=== PATIENT | male | born 1970 | race Caucasian/White ===

== ENCOUNTER 2016-07-05 04:02 | Inpatient (IN) ==
[2016-07-05] MEDS ORDERED: NS 1,000 ML IV ONE (04:32)
[2016-07-05] MEDS ORDERED: DILAUDID IM ONE (04:46)
[2016-07-05] MEDS ORDERED: ZOFRAN IV ONE (04:46)
[2016-07-05 04:47] LABS: MANUAL DIFF NEEDED? NO; URINE CULTURE NEEDED? NO; URINE MICRO REVIEW NEEDED? NO; URINE SOURCE CLEAN CATCH
[2016-07-05 04:57] LABS: BILIRUBIN URINE NEGATIVE (NEGATIVE); BLOOD URINE NEGATIVE (NEGATIVE); COLOR YELLOW; GLUCOSE URINE NEGATIVE (NEGATIVE); LEUKOCYTES URINE NEGATIVE (NEGATIVE); NITRITE URINE NEGATIVE (NEGATIVE); PROTEIN URINE NEGATIVE (NEGATIVE); SP GRAVITY URINE 1.015; TURBIDITY URINE CLEAR (CLEAR); UROBILINOGEN URINE NORMAL (NORMAL)
[2016-07-05 04:58] LABS: BASO% 0.6 % (0.0-0.8); EOS# 0.92 X1000 (0.0-0.7); EOS% 10.5 % (0.0-10.0); HEMOGLOBIN 16.5 g/dL (14.0-18.0); IMM GRAN# 0.02 X1000 (0.0-0.04); IMM GRAN% 0.2 % (0.0-0.5); LYMPH# 2.78 X1000 (1.2-3.4); LYMPH% 31.7 % (20.5-51.1); MCHC 35.1 g/dL (33-37); MCV 96.9 FL (81-99); MONO# 0.97 X1000 (0.11-0.59); MPV 10.1 FL (7.4-10.4); PLT 275 X1000 (130-400); RBC 4.85 XMIL (4.7-6.1)
[2016-07-05 05:00] LABS: UR EPITHELIAL CELLS <10 /HPF (<10); URINE BACTERIA NEGATIVE /HPF; URINE RBC <10 /HPF (<10); URINE WBC <10 /HPF (<10)
[2016-07-05 05:12] LABS: AGAP 12; ALBUMIN 3.9 g/dL (3.5-5.0); ALKALINE PHOSPHATASE 64 U/L (32-122); AMYLASE 67 U/L (20-200); BUN 15 mg/dL (8-22); CALCIUM 8.7 mg/dL (8.8-10.2); CHLORIDE 100 mmol/L (98-107); COSMO 278; GOT 28 U/L (10-34); GPT 29 U/L (10-44); LIPASE 42 U/L (13-60); POTASSIUM 3.8 mmol/L (3.5-5.1); SODIUM 139 mmol/L (136-145); TCO2 27 mmol/L (25-35); TOTAL BILIRUBIN 0.45 mg/dL (0.20-1.00)
--- NOTE | 2016-07-05 05:34 | PROVIDER DOCUMENTATION ---
HPI-Abdominal Pain/GI Problem - General Chief Complaint: Abdominal Pain Stated Complaint: MALE Time Seen by Provider: 07/05/16 04:19 Source: patient Allergies/Adverse Reactions: Patient Allergies Allergy/AdvReac Type Severity Reaction Status Date / Time iodine Allergy Severe trouble Verified 07/05/16 04:29 breathing NSAIDS (Non-Steroidal Allergy Unknown bleeding Verified 07/05/16 04:29 Anti-Inflamma Penicillins Allergy Unknown RASH Verified 07/05/16 04:29 Sulfa (Sulfonamide Allergy Unknown RASH Verified 07/05/16 04:29 Antibiotics) Home Medications: Home Medication List Medication Instructions Recorded Confirmed Last Taken Type Psyllium Husk [Medi-Mucil] 0.52 mg PO DAILY 07/05/16 07/05/16 07/04/16 08:00 History Ranitidine HCl [Zantac] 300 mg PO DAILY 07/05/16 07/05/16 07/04/16 08:00 History - History of Present Illness-ABD Nature of Presenting Problems: 45 jony WM with Crohn's dz developed abdominal bloating and distension yesterday morning. He normally has about 20 BM's perday but none the past 24 h. Review of Systems - Adult - REVIEW OF SYSTEMS - ADULT Constitutional: reports: no symptoms reported Eyes: reports: no symptoms reported Ears, Nose, Mouth & Throat: reports: no symptoms reported Cardiovascular: reports: no symptoms reported Respiratory: reports: no symptoms reported Gastrointestinal: reports: see HPI Genitourinary: reports: no symptoms reported Musculoskeletal: reports: no symptoms reported Integumentary: reports: no symptoms reported Neurological: reports: no symptoms reported Psychiatric: reports: no symptoms reported Endocrine: reports: no symptoms reported Hematologic/Lymphatic: reports: no symptoms reported Allergic/Immunologic: reports: no symptoms reported All Other Systems: Reviewed and Negative Past History - Adult - PAST MEDICAL HISTORY-ADULT Review of Records: reports: Old Records Reviewed Major Childhood Illnesses: reports: denies history Cardiovascular: reports: denies history Respiratory: reports: denies history Gastrointestinal: reports: Crohn's Obstetrical/Gynecological: reports: denies history Genitourinary: reports: denies history Musculoskeletal: reports: denies history Neurological: reports: denies history Endocrine/Immune: reports: denies history Other Conditions: reports: denies history - FAMILY HISTORY Family History: reviewed, not pertinent Physical Exam-General - CONSTITUTIONAL General Appearance: appears well - EYES Eyes: PERRL/EOMI, pink conjunctivae - HEAD, EARS, NOSE, MOUTH & THROAT HENMT: normocephalic/atraumatic, moist mucous membranes - NECK Neck: non-tender, full range of motion - RESPIRATORY Respiratory: chest non-tender, lungs clear, normal breath sounds - CARDIOVASCULAR Cardiovascular: normal peripheral pulses, regular rate, rhythm, no edema - GASTROINTESTINAL (ABDOMEN) Abdominal Exam: distended, tenderness. negative: normal bowel sounds - LYMPHATIC Lymphatic: no adenopathy - MUSCULOSKELETAL Extremity: non-tender Peripheral Pulses: radial (R): 3+, radial (L): 3+ - SKIN Integumentary: normal color, normal turgor - NEUROLOGIC Neurologic: grossly normal - PSYCHIATRIC Psych/Mental Status: normal mood/affect Progress - PLAN OF CARE/RESULTS Progress/Plan/Lab Results: Laboratory Tests 07/05/16 07/05/16 07/05/16 04:22 04:22 04:22 WBC 8.78 RBC 4.85 Hgb 16.5 Hct 47.0 MCV 96.9 MCH 34.0 H MCHC 35.1 RDW Std Deviation 13.5 Plt Count 275 MPV 10.1 Immature Gran % (Auto) 0.2 Neut % (Auto) 46.0 Lymph % (Auto) 31.7 Cannon % (Auto) 11.0 H Eos % (Auto) 10.5 H Baso % (Auto) 0.6 Immature Gran # (Auto) 0.02 Neut # (Auto) 4.04 Lymph # (Auto) 2.78 Cannon # (Auto) 0.97 H Eos # (Auto) 0.92 H Baso # (Auto) 0.05 Sodium 139 Potassium 3.8 Chloride 100 Carbon Dioxide 27 Anion Gap 12 BUN 15 Creatinine 1.2 Estimated GFR/1.73 m2 > 60 BUN/Creatinine Ratio 13 Glucose 88 Calculated Osmolality 278 Calcium 8.7 L Total Bilirubin 0.45 AST 28 ALT 29 Alkaline Phosphatase 64 Total Protein 7.0 Albumin 3.9 Globulin 3.1 Albumin/Globulin Ratio 1.3 Amylase 67 Lipase 42 Urine Source CLEAN CATCH Urine Color YELLOW Urine Turbidity CLEAR Urine pH 6.0 Ur Specific Cicero 1.015 Urine Protein NEGATIVE Ur Glucose (Stick) NEGATIVE Ur Ketones (Stick) TRACE A Urine Blood NEGATIVE Urine Nitrite NEGATIVE Urine Bilirubin NEGATIVE Urobilinogen Dipstick NORMAL Urine Leukocytes NEGATIVE Urine WBC (Auto) <10 Urine RBC (Auto) <10 U Epithel Cells (Auto) <10 Urine Bacteria (Auto) NEGATIVE Orders Category Date Time Status Saline Loc DIRECTED Care 07/05/16 04:26 Active NPO Diet 07/05/16 04:[address] ABD/PELVIS W/ IV CONT ONLY [CT] Stat Exams 07/05/16 05:39 Ordered FLAT/UPRIGHT ABD/1 VIEW CHEST [RAD] Stat Exams 07/05/16 04:32 Taken AMYLASE [CHEM] Stat Lab 07/05/16 04:22 Completed CBC WITH ELECTRONIC DIFF [HEME] Stat Lab 07/05/16 04:22 Completed COMPREHENSIVE METABOLIC PANEL [CHEM] Stat Lab 07/05/16 04:22 Completed LIPASE [CHEM] Stat Lab 07/05/16 04:22 Completed PT [PROTIME WITH INR] [COAG] Stat Lab 07/05/16 05:38 Ordered PTT [COAG] Stat Lab 07/05/16 05:38 Ordered URINALYSIS W/POSS RFLX CULT [URINALYSIS] Stat Lab 07/05/16 04:22 Completed 0.9% Sodium Chloride Inj [Ns] 1,000 ml Med 07/05/16 04:32 Discontinued IV 999 mls/hr Hydromorphone [Dilaudid] Med 07/05/16 04:46 Discontinued 1 mg IM NOW ONE Ondansetron [Zofran] Med 07/05/16 04:46 Discontinued 4 mg IV NOW ONE Vital Signs Temp Pulse Resp BP Pulse Ox 07/05/16 04:05 97.6 F 120 H 20 113/87 100 iodine Allergy (Severe, Verified 07/05/16 04:29) trouble breathing NSAIDS (Non-Steroidal Anti-Inflamma Allergy (Unknown, Verified 07/05/16 04:29) bleeding Penicillins Allergy (Unknown, Verified 07/05/16 04:29) RASH Sulfa (Sulfonamide Antibiotics) Allergy (Unknown, Verified 07/05/16 04:29) RASH Psyllium Husk [Medi-Mucil] 0.52 mg PO DAILY 07/05/16 Ranitidine HCl [Zantac] 300 mg PO DAILY 07/05/16 Dietary Diet NPO Start SunJul 05 425 I&O 07/03/16 07/04/16 07/05/16 06:59 06:59 06:59 Output Total 65 Balance -65 Laboratory 07/05/16 07/05/16 07/05/16 04:22 04:22 04:22 WBC 8.78 RBC 4.85 Hgb 16.5 Hct 47.0 MCV 96.9 MCH 34.0 H MCHC 35.1 RDW Std Deviation 13.5 Plt Count 275 MPV 10.1 Immature Gran % (Auto) 0.2 Neut % (Auto) 46.0 Lymph % (Auto) 31.7 Cannon % (Auto) 11.0 H Eos % (Auto) 10.5 H Baso % (Auto) 0.6 Immature Gran # (Auto) 0.02 Neut # (Auto) 4.04 Lymph # (Auto) 2.78 Cannon # (Auto) 0.97 H Eos # (Auto) 0.92 H Baso # (Auto) 0.05 Sodium 139 Potassium 3.8 Chloride 100 Carbon Dioxide 27 Anion Gap 12 BUN 15 Creatinine 1.2 Estimated GFR/1.73 m2 > 60 BUN/Creatinine Ratio 13 Glucose 88 Calculated Osmolality 278 Calcium 8.7 L Total Bilirubin 0.45 AST 28 ALT 29 Alkaline Phosphatase 64 Total Protein 7.0 Albumin 3.9 Globulin 3.1 Albumin/Globulin Ratio 1.3 Amylase 67 Lipase 42 Urine Source CLEAN CATCH Urine Color YELLOW Urine Turbidity CLEAR Urine pH 6.0 Ur Specific [place] 1.015 Urine Protein NEGATIVE Ur Glucose (Stick) NEGATIVE Ur Ketones (Stick) TRACE A Urine Blood NEGATIVE Urine Nitrite NEGATIVE Urine Bilirubin NEGATIVE Urobilinogen Dipstick NORMAL Urine Leukocytes NEGATIVE Urine WBC (Auto) <10 Urine RBC (Auto) <10 U Epithel Cells (Auto) <10 Urine Bacteria (Auto) NEGATIVE - XRAY 1 XRAY: Bilateral (SBO) XRAY Study: Chest, Abdomen, Pelvis - CONSULTS/PCP/HOSPITALIST Notification Time Discussed: 05:20 Reason/Comments: Dr. Jesus agrees with admission Consult Disposition: Admit Departure - Departure Time of Disposition Order: 05:47 DIAGNOSIS: Small bowel obstruction Crohn's disease Qualifiers: Gastrointestinal tract location: large intestine Digestive disease complication type: with intestinal obstruction Qualified Code(s): K50.112 - Crohn's disease of large intestine with intestinal obstruction Disposition: ADMITTED INPATIENT 09 Certified Medical Emergency: Emergent Condition: Fair
[2016-07-05 06:12] LABS: INR 1.04; PTT 27.9 Seconds (22.0-36.0)
[2016-07-05] MEDS: DILAUDID IV PRN ×6 (06:20→21:49)
[2016-07-05] MEDS ORDERED: OFIRMEV 1000 MG/ISOTONIC SOLN 100 ML IV PRN (06:31)
[2016-07-05] MEDS ORDERED: SODIUM CHLORIDE 0.9% INJ SCH (06:31)
[2016-07-05] MEDS ORDERED: ZOFRAN IV PRN (06:31)
[2016-07-05] MEDS: NS 1,000 ML IV SCH ×2 (06:44→16:43)
--- NOTE | 2016-07-05 08:11 | Diag Imaging Result Document ---
PROCEDURE NAME: ABDOMEN/PELVIS W/O CONTRAST - 07/05/2016 CT ABDOMEN PELVIS, 07/05/2016: COMPARISON: 11/03/2014 FINDINGS: There are some moderately fluid and gas-distended loops of small bowel similar to prior. There is no focal transition point. No significant bowel inflammatory changes. Stable prior colectomy changes. Urinary bladder, prostate, and rectum are normal. No free air or free fluid. The lung bases are clear and the heart size is normal. Bony structures are intact. No radiodense renal stones or hydronephrosis. There is some stable retroperitoneal stranding compatible with mild retroperitoneal fibrosis. IMPRESSION: Stable mildly gas and fluid-dilated small-bowel loops. This may be a chronic finding or suggest ileus. No definite obstruction. Otherwise, no complication or change from prior.
--- NOTE | 2016-07-05 08:14 | Diag Imaging Result Document ---
PROCEDURE NAME: FLAT/UPRIGHT ABD/1 VIEW CHEST - 07/05/2016 FRONTAL CHEST X-RAY AND 2 VIEWS OF THE ABDOMEN, 07/05/2016: COMPARISON: 11/03/2014. FINDINGS: The chest is clear. There are several scattered mildly gas and fluid-distended loops of small bowel throughout the abdomen. The patient has had a subtotal colectomy. No free air demonstrated. There are cholecystectomy clips. IMPRESSION: There are some mildly gas and fluid-dilated loops of small bowel, which are nonspecific and may represent ileus, better evaluated on the subsequent CT.
--- NOTE | 2016-07-05 08:33 | HISTORY AND PHYSICAL ---
PRIMARY CARE PROVIDER: Dr. Crow Joseph. CHIEF COMPLAINT: Abdominal pain and abdominal distension. HISTORY OF PRESENT ILLNESS: Mr. Bella is a 45-year-old male with a past medical history of Crohn disease with a total colectomy in 1990. The patient presented to the ER today complaining of abdominal pain with no bowel movement since yesterday. The patient states that secondary to his total colectomy that he usually has approximately 20 bowel movements a day that are normally loose, and that not having a bowel movement for a day or more is very unusual for him. He reports that he sees Dr. Joseph as his primary care physician and he manages his Crohn disease. The patient also complains of some abdominal distension though he denies any nausea or vomiting. He denies any fever or chills. The patient does report some body aches, but states that this is not of new onset and that he regularly has body aches secondary to his Humira medicine. He denies any dizziness, headaches, chest pain, shortness of breath, dysuria, urinary frequency, or pain, numbness, or tingling in extremities. Upon evaluation in the ER, the patient was found to have abdominal distension. A flat and upright was performed which did show suspicion for a small bowel obstruction. A CT abdomen and pelvis without intravenous contrast was performed, which showed that the patient had air throughout multiple mildly dilated loops of small bowel with interposed loops of nondistended small bowel. No focal transition point is identified. Findings most suggestive of a mild ileus, although earlier partial small bowel obstruction is not excluded. At this time. we will admit the patient for further treatment and evaluation of his small bowel obstruction. REVIEW OF SYSTEMS: A 14-point review of systems was conducted with the patient and all were negative except for pertinent positives mentioned in the above HPI. PAST MEDICAL HISTORY: 1. Crohn disease. 2. DVT, lower extremity, approximately 5 years ago. 3. Previous small bowel obstruction. PAST SURGICAL HISTORY: 1. Cholecystectomy. 2. Colectomy. ALLERGIES: The patient reports allergies to sulfa, penicillin, iodine, NSAID, and IV contrast dye. SOCIAL HISTORY: The patient denies any previous history of tobacco, alcohol, or illicit drug use. FAMILY HISTORY: He reports that his mother and father are both healthy with no known medical problems. There is a history of cervical cancer in his grandmother. HOME MEDICATIONS: 1. Zantac 300 mg p.o. daily. 2. Metamucil 0.52 mg p.o.daily. 3. Leona 5 one p.o. daily p.r.n. as needed for pain. 4. Humira one injection subcutaneous every 2 weeks. He reports that his last injection was on June 29. DIAGNOSTIC DATA/LABORATORY RESULTS: White blood cell count 8.7, hemoglobin 16.5, hematocrit 47, platelet count 275. PT 11, INR 1.04, PTT 27.9. Sodium 139, potassium 3.8, chloride 100, bicarb 27, BUN 15, creatinine 1.2, glucose 88, calcium 8.7. Liver function tests were within normal limits. Amylase 67, lipase 42. Urinalysis was obtunded via clean catch, was positive for trace ketones but was otherwise within normal limits. CT of the abdomen and pelvis without intravenous contrast showed air throughout mildly dilated loops of small bowel with interposed loops of nondistended small bowel, no focal transition point identified. Findings most suggestive of mild ileus, although an earlier partial small bowel obstruction is not excluded. Possible mild duodenitis. Partial colectomy and cholecystectomy. PHYSICAL EXAMINATION: VITAL SIGNS: Temperature 97.6, heart rate 120, respirations 20, blood pressure 113/87, oxygen saturation is 100% on room air. GENERAL: Mr. Bella is a well-nourished, well-developed, pleasant 45-year-old male who is resting in the ER stretcher who is in no acute distress. He was awake, alert, and able to answer all questions appropriately. HEENT: Head is atraumatic, normocephalic. Pupils are equal, round and reactive to light, were 3 mm bilaterally and brisk. Subconjunctivae are pink. Oral mucosa is moist. Oropharynx is clear. NECK: Supple, trachea midline. CARDIOVASCULAR: The patient has normal S1, S2, no murmurs, gallops, or rubs appreciated with a slightly tachycardic rate and a regular rhythm. PULMONARY: The patient has symmetrical chest expansion bilaterally. Lung sounds are clear to auscultation in bilateral full khanna. ABDOMEN: The patient's abdomen is slightly firm, slightly distended, was tender upon palpation. He reports a generalized soreness though did report the worst pain with palpation in his epigastric area to right upper quadrant. No rebound tenderness noted. Bowel sounds were present in all 4 quadrants, were slightly hyperactive. EXTREMITIES: No cyanosis, clubbing, or edema noted. Pulse, motor, and sensory was intact in all extremities, as well. Pedal pulses as well as radial pulses were 3+ bilaterally. Capillary refill was less than 3. INTEGUMENTARY: The patient's skin is pink, warm, dry, and intact. No lesions or sores noted. NEUROLOGICAL: The patient is alert and oriented x4. Cranial nerves 2-12 are grossly intact. ASSESSMENT AND PLAN: 1. Small bowel obstruction. For management of this, we will admit the patient to the medical floor. We will keep him n.p.o. to allow for bowel rest. We will provide him with gentle fluid infusion of 100 mg normal saline for hydration. We will give him pain medication and nausea medication as needed. We have placed a consult with Dr. Frye with Surgery and will await his evaluation and further recommendations for management of this, as well. 2. Crohn disease. The patient regularly sees Dr. Joseph for this. We will place a consult for his evaluation and further management of this, as well. 3. DVT prophylaxis. We will provide with SCDs. 4. GI prophylaxis. Place the patient on Protonix 40 mg IV q.24 h. We will do vital signs q.6 h., do strict intake and output. We have placed an order for an EKG and that is pending at this time. Further orders and recommendations pending hospital course, diagnostic studies, and physician evaluation. Dictated by SUNI Jasso for Armen Jesus MD
[2016-07-05] MEDS: PROTONIX IV SCH (09:20)
--- NOTE | 2016-07-05 09:45 | CONSULTATION ---
DATE OF CONSULTATION: 07/05/2016 REQUESTING PHYSICIAN: Emergency Department. REASON FOR CONSULTATION: Concerning potential partial small-bowel obstruction in a patient with Crohn. HISTORY OF PRESENT ILLNESS: A 45-year-old male with history of Crohn, who stated he developed abdominal bloating and distention starting yesterday morning. He states that he normally has 20 bowel movements per day, but has had none in the last 24 hours. He is followed by Dr. Joseph for his Crohn, had altered some of his medications, and he thinks taking more Metamucil might have thickened his bowel movements up. He is taking Humira and Remicade for his Crohn, and receives those on a regular basis. He reported some cramping abdominal pain, was seen in emergency department, and had a CT scan that has been read by the radiologist. He was noted to have stable mild gas, dilated small-bowel that could be a chronic finding. No significant change from previous CT scans. Given this, I was asked to evaluate the patient. PAST MEDICAL HISTORY: 1. Crohn. 2. History of DVTs. PAST SURGICAL HISTORY: 1. Total abdominal colectomy with J-pouch reconstruction previous ileostomy with reversal. 2. Cholecystectomy. ALLERGIES: NSAIDs, iodine, penicillin and sulfa. HOME MEDICATIONS: As noted above. He takes Humira and Remicade, Zantac and Metamucil. FAMILY HISTORY: Reviewed with patient. No history of coronary artery disease. SOCIAL HISTORY: Denies smoking, alcohol, or illicit drugs. REVIEW OF SYSTEMS: A full 10 point review of systems obtained, negative other than as specified in HPI. PHYSICAL EXAMINATION: Vital Signs: Patient is afebrile. Upon presentation his heart rate is in the 120s, but now is in the 60s. Respiratory rate nonlabored in the 20's. Blood pressure 113/87, O2 saturation 100% on room air. General: No acute distress. Resting comfortably in bed. male, looks stated age. HEENT: Normocephalic, atraumatic. Pupils equal, round, reactive to light. Mucous membranes moist. Oropharynx benign. Neck: Supple. Trachea midline. Cardiovascular: Regular rate and rhythm. Lungs: Grossly clear. Abdomen: Soft, nondistended and, at this time, no real significant tenderness to palpation on examination. Previous surgical scars noted. Well healed. Extremities: Moves all extremities well. Neurologic: Grossly intact. Skin: No signs of jaundice. Vascular: All extremities perfused. LABORATORY: CBC reviewed, essentially within normal limits. BMP reviewed, essentially within normal limits. X-RAYS: CT scan reviewed and noted above. ASSESSMENT/PLAN: A 45-year-old, male with partial small-bowel obstruction versus chronic obstruction with a history of Crohn. 1. Crohn: At this time, Dr. Joseph, his main social science research assistant, has been consulted. The patient may require steroids for an acute flare up. He does not appear toxic at this time, although his heart rate was initially elevated in the emergency room, but it is now in the 60s. Will recommend bowel rest. Surgical intervention would be difficult given his past surgical history and his J-pouch. I would like to hold off at this time if clinical picture continues to improve. We will continue to follow with you. I appreciate the consult.
--- NOTE | 2016-07-05 13:16 | CONSULTATION ---
DATE OF CONSULTATION: 07/05/2016 HISTORY OF PRESENT ILLNESS: This is a 45-year-old, white male, known to our practice with a history of Crohn's status post total colectomy with J-pouch in the . He has followed in our office for management of his Crohn's. He currently takes Humira 40 mg subcu injections every 2 weeks. He has been prescribed Canasa in the past but insurance had stopped covering it. He was using Canasa when available by samples from our office. He had continued to report loose stools which is chronic for him. He was last seen in our office on June 22. At that time he was given Zantac 150 mg twice daily for its antisecretory effects to see if that helped with diarrhea. He was also advised to start Metamucil 2 tablespoons daily with Activia yogurt. He had been doing that. He states he felt like he got a stomach virus about 2 days ago. Thought it might have been something he had eaten and he continued to have abdominal cramping and then over the last 12-14 hours his bowel movements subsided and so he presented to the emergency room. He denied vomiting. Had some episodes of nausea, reported belching, reported abdominal pain and cramping. He did take some hyoscyamine at home to help with cramping. He denied fever. States his abdomen has been distended and sore over the last several days. He denied dysuria and denied rectal bleeding. Denies blood in the urine. He had an abdominal CT scan that showed stable mildly gas and fluid dilated small bowel loops. He had an abdominal x-ray prior to the CT scan that showed gas and fluid dilated loops of small bowel nonspecific and possibly representing an ileus. On the CT scan comparable to October of 2014, the gas and fluids dilated loops of small bowel were stable. PAST MEDICAL HISTORY: For Crohn's, history of peptic ulcer disease. PAST SURGICAL HISTORY: Colectomy in the . Last flexible sigmoidoscopy was in 2016. He has had a cholecystectomy. SOCIAL HISTORY: Denies tobacco or alcohol use. He is . He has 2 children. ALLERGIES: To iodine causing trouble breathing, NSAIDs causing bleeding, penicillins cause rash, sulfa medications cause a rash. HOME MEDICATIONS: Humira 40 mg subcu every 14 days. Cowdrey 5, 1 daily as needed. Zantac 150 mg twice daily and Metamucil daily.Vital Signs: Temperature 97.6 degrees, pulse 58, respirations 17, blood pressure 104/72. General: Patient is awake, alert, no acute distress. HEENT: Normocephalic, atraumatic. Pupils equal, round, reactive to light. Sclerae nonicteric. Cardiovascular: Regular rate and rhythm. He has had some tachycardia noted. Pulmonary: Lung sounds clear bilaterally. Abdomen: Somewhat distended. I do hear some positive bowel sounds. He reports tenderness with palpation. Extremities: No lower extremity edema noted. Pedal pulses present bilaterally. Neurological: Cranial nerves 2-12 grossly intact. Patient is awake, alert, oriented to person, place, and time. LABORATORY: Hematology: White count 8.78, hemoglobin 16.5, hematocrit 47.0, MCV 96.9, platelets 275,000. Coagulation: Pro time 11.0 and INR 1.04, PTT 27.9. Chemistry: Sodium 139, potassium 3.8, chloride 100, CO2 27, BUN 15, creatinine 1.2, glucose 88, calcium 8.7, total bilirubin 0.45, AST 28, ALT 29, alkaline phosphatase 64, amylase 67, lipase 42. Urinalysis showed trace amount of ketones otherwise normal urinalysis. PLAN: Continue supportive care. Continue IV fluids. Bowel rest. I have discussed this case with Dr. Hoyos. Further plans will be made as needed. Do not recommend surgical intervention at present. Will continue bowel rest, IV fluids and see if his symptoms improve. Further plans will be made as needed. Patient was understanding of this plan. Thank you for this consultation. Dictated by SUNI Singh for Crow Joseph MD
[2016-07-05] MEDS: SOLU-MEDROL IV SCH ×2 (15:18→21:48)
[2016-07-06] MEDS: SOLU-MEDROL IV SCH ×2 (00:08→06:18)
[2016-07-06] MEDS: DILAUDID IV PRN ×2 (01:18→05:09)
[2016-07-06 06:23] LABS: BASO% 0.1 % (0.0-0.8); EOS# 0.01 X1000 (0.0-0.7); EOS% 0.1 % (0.0-10.0); HEMATOCRIT 46.5 % (42.0-52.0); HEMOGLOBIN 16.1 g/dL (14.0-18.0); IMM GRAN# 0.03 X1000 (0.0-0.04); IMM GRAN% 0.3 % (0.0-0.5); LYMPH# 0.85 X1000 (1.2-3.4); LYMPH% 8.9 % (20.5-51.1); MANUAL DIFF NEEDED? YES; MCH 33.8 PG (27-31); MCHC 34.6 g/dL (33-37); MCV 97.7 FL (81-99); MONO# 0.17 X1000 (0.11-0.59); MONO% 1.8 % (1.7-9.3); MPV 9.8 FL (7.4-10.4); NEUT% 88.8 % (42.2-75.2); PLT 266 X1000 (130-400); RBC 4.76 XMIL (4.7-6.1)
--- NOTE | 2016-07-06 06:24 | PROGRESS NOTE ---
DATE: 07/06/2016 SUBJECTIVE: Patient doing well. Having multiple bowel movements. Pain is much improved. OBJECTIVE: Vital Signs: Patient is currently afebrile. His vital signs have been stable. General: No acute distress. Alert, interactive, male looks stated age. HEENT: Normocephalic, atraumatic. Pupils are equal, round, react to light. Mucous membranes moist. Oropharynx benign. Neck: Supple. Trachea midline. Cardiovascular: Regular rate and rhythm. Lungs: Grossly clear. Abdomen: Soft, nondistended, nontender at this time. Extremities: Moves all extremities well. Neurologic: Grossly intact. Skin: No signs of jaundice. Vascular: All extremities perfused. LABORATORY: None this morning yet. ASSESSMENT/PLAN: A 45-year-old, male with partial small-bowel obstruction likely secondary to Crohn's Crohn's. At this time, patient is clinically doing well. Can likely start him on a diet. He is being seen and evaluated by his supervisor metal hanging, Dr. Joseph. I will defer most of the management to him. I will be available if needed.
[2016-07-06 06:39] LABS: AGAP 13; BUN 15 mg/dL (8-22); CALCIUM 8.5 mg/dL (8.8-10.2); CHLORIDE 102 mmol/L (98-107); COSMO 277; POTASSIUM 4.2 mmol/L (3.5-5.1); SODIUM 138 mmol/L (136-145); TCO2 23 mmol/L (25-35)
[2016-07-06 07:15] LABS: BANDS 6 % (0-1); LYMPHS 10 % (21-51); MONO 2 % (1-9)
[2016-07-06] MEDS: PROTONIX IV SCH (09:35)
[2016-07-06 15:25] VITALS: BP 130/71
--- NOTE | 2016-07-07 18:34 | DISCHARGE SUMMARY ---
ADMISSION DATE: 07/05/2016 DISCHARGE DATE: 07/06/2016 CONSULTATIONS: 1. Crow Joseph M.D., Gastroenterology. 2. Donnie Frye M.D., General Surgery. PERTINENT PROCEDURES: Abdominopelvic CT shows stable mild gas and fluid, dilated small bowel loops. This may be a chronic finding or suggest ileus. No definite obstruction. Otherwise no complication or change from prior. DISCHARGE DIAGNOSES: 1. Small bowel obstruction likely secondary to Crohn's. Stable. We will follow up with Gastroenterology. 2. Crohn's disease. The patient will follow up with Gastroenterology. 3. Lower extremity deep vein thrombosis history 5 years ago. 4. Previous small-bowel obstruction history. HOSPITAL COURSE: Mr. Bella is a 45-year-old, male with a past medical history of Crohn's disease with a total colectomy in 1990. Patient presented to the ED complaining of abdominal pain with no bowel movement since the day before admission. The patient states that secondary to his total colectomy he usually has approximately 20 bowel movements a day that are normally loose and that not having a bowel movement for a day is very unusual for him. He reported that he sees Dr. Joseph, his primary care physician, and he manages his Crohn's disease. Patient also complained of some abdominal distention though he denied any nausea, vomiting, fever or chills. He did report some body aches but stated that was a common occurrence for him secondary to his Humira. Flat and upright performed in the ED showed a small bowel obstruction. A CT of the abdomen and pelvis without contrast was performed which showed the patient had air throughout multiple mildly dilated loops of small bowel with interposed loops of nondistended small bowel. No focal transition point was identified. It was suggestive of mild ileus or partial small bowel obstruction could not be excluded. The patient was admitted, made NPO, started IV fluids as well as pain medications with a GI consultation and surgical consultation. Surgery recommended bowel rest to see if he clinically improved. The patient did clinically improve. He was started on a diet and he tolerated that well. He was having multiple bowel movements. His pain was much improved. The patient was discharged on 07/06/[address] Blanchard. VITAL SIGNS AT TIME OF DISCHARGE: Temperature 98 degrees, heart rate 83, respirations 20, blood pressure is 130/71, O2 is 99% on room air. DISCHARGE MEDICATIONS: 1. Leola 5, 1 each p.o. daily p.r.n. 2. Humira 20 mg subcutaneously as directed. 3. Metamucil 0.5 mg p.o. daily. 4. Zantac 300 mg p.o. daily. 5. Medrol Dosepak 4 mg as directed. FOLLOWUP: 1. The patient is discharged back home. 2. He will follow up with his GI specialist, Dr. Joseph. 3. The patient can return to the ED for any worsening of symptoms. DISCHARGE TIME: 30 minutes. Dictated by SUNI Brasher for Guero Holden MD
== END 2016-07-06 15:47 | disposition home or self-care (01) | DRG 386 ==
LOC: ED 04:02 → EDIPHOLD 08:13 → 4N 13:40
PROVIDERS: ATTEND Internal Medicine
DX: K50.112 Crohn's disease of large intestine with intestinal obstruction (principal); Z86.718 Personal history of other venous thrombosis and embolism; Z90.49 Acquired absence of other specified parts of digestive tract; Z80.49 Family history of malignant neoplasm of other genital organs; Z79.899 Other long term (current) drug therapy; Z87.11 Personal history of peptic ulcer disease
CPT/HCPCS: 74022; 74176; 80048; 80053; 81001; 82150; 82306; 82607; 82746; 82948; 83690; 85025; 85610; 85730; 93005; 94762; 96372; 96374; 96375; 96376; C9113; J1170; J2405; J2930; J7030; S0164

== ENCOUNTER 2016-09-28 11:53 | Inpatient (IN) ==
[2016-09-28] MEDS ORDERED: MORPHINE IV ONE (12:12)
[2016-09-28] MEDS ORDERED: ZOFRAN ODT PO ONE (12:12)
[2016-09-28] MEDS ORDERED: NS 1,000 ML IV ONE (12:12)
--- NOTE | 2016-09-28 12:26 | PROVIDER DOCUMENTATION ---
HPI-Abdominal Pain/GI Problem - General Chief Complaint: Abdominal Pain Stated Complaint: POSS BLOCKAGE Time Seen by Provider: 09/28/16 12:03 Source: patient, family Allergies/Adverse Reactions: Patient Allergies Allergy/AdvReac Type Severity Reaction Status Date / Time iodine Allergy Severe trouble Verified 09/28/16 12:30 breathing NSAIDS (Non-Steroidal Allergy Unknown bleeding Verified 09/28/16 12:30 Anti-Inflamma Penicillins Allergy Unknown RASH Verified 09/28/16 12:30 Sulfa (Sulfonamide Allergy Unknown RASH Verified 09/28/16 12:30 Antibiotics) Home Medications: Home Medication List Medication Instructions Recorded Confirmed Last Taken Type Adalimumab [Humira] 20 mg SQ DIRECTED 07/05/16 09/28/16 09/28/16 History - History of Present Illness-ABD Nature of Presenting Problems: Diffused abd pain this this morning with N/V. Long history of Crohn's disease and had surgeries in the past. H/o SBO recurrently. Pt is allergic to IV contrast with severe reaction. Denies F/C/dysuria Abdominal Pain Onset Location: reports: generalized abdomen Pain Radiation: reports: no radiation Quality of Pain: reports: aching Severity in ED: reports: moderate, severe Onset/Duration: reports: this morning Timing: reports: still present Activities at Onset: reports: none Exposure to sick contacts?: No Associated Symptoms: reports: denies symptoms, loss of appetite, nausea, vomiting. denies: constipation, cough Last BM: unsure Dark Stools Present?: reports: none noticed Rectal Bleeding: reports: none Rectal Pain: reports: none Emesis Description: reports: none Bruising or Bleeding Gums?: No Similar Symptoms Previously?: Yes Recently seen or treated by another doctor?: Yes Review of Systems - Adult - REVIEW OF SYSTEMS - ADULT Constitutional: reports: no symptoms reported Eyes: reports: no symptoms reported Ears, Nose, Mouth & Throat: reports: no symptoms reported Cardiovascular: reports: no symptoms reported Respiratory: reports: no symptoms reported Gastrointestinal: reports: see HPI, abdominal pain, nausea, vomiting Genitourinary: reports: see HPI, dysuria Musculoskeletal: reports: no symptoms reported Integumentary: reports: no symptoms reported Neurological: reports: no symptoms reported Psychiatric: reports: no symptoms reported Endocrine: reports: no symptoms reported Hematologic/Lymphatic: reports: no symptoms reported Allergic/Immunologic: reports: no symptoms reported All Other Systems: Reviewed and Negative Past History - Adult - PAST MEDICAL HISTORY-ADULT Review of Records: reports: Old Records Reviewed, Nursing Assessment Review Major Childhood Illnesses: reports: denies history Cardiovascular: reports: denies history Respiratory: reports: denies history Gastrointestinal: reports: Crohn's Obstetrical/Gynecological: reports: denies history Genitourinary: reports: denies history Musculoskeletal: reports: denies history Neurological: reports: denies history Endocrine/Immune: reports: denies history Other Conditions: reports: denies history - FAMILY HISTORY Family History: reviewed, not pertinent Physical Exam-General - PHYSICAL EXAM-ADULT Initial Vital Signs Reviewed: Yes - CONSTITUTIONAL General Appearance: alert, no apparent distress - EYES Eyes: PERRL/EOMI, pink conjunctivae - HEAD, EARS, NOSE, MOUTH & THROAT HENMT: normocephalic/atraumatic, moist mucous membranes, normal ENT inspection - NECK Neck: non-tender, full range of motion, supple - RESPIRATORY Respiratory: chest non-tender, lungs clear, no respiratory distress, no accessory muscle use - CARDIOVASCULAR Cardiovascular: normal peripheral pulses, regular rate, rhythm - GASTROINTESTINAL (ABDOMEN) Abdominal Exam: normal bowel sounds, non tender, soft, no organomegaly, no pulsatile mass, tenderness (Diffused abd tenderness with guarding and mild rebound.). negative: guarding, rigid, rebound - MUSCULOSKELETAL Back Exam: normal inspection, no CVA tenderness, no vertebral tenderness Extremity: normal range of motion, non-tender, normal gait, normal inspection - SKIN Integumentary: normal color, normal turgor, warm/dry - NEUROLOGIC Neurologic: no motor/sensory deficits - PSYCHIATRIC Psych/Mental Status: normal mood/affect, normal thought content, normal thought process, oriented x 3 Progress - PLAN OF CARE/RESULTS Progress/Plan/Lab Results: Vital Signs - 8 hr 09/28/16 12:00 Temperature 97.7 F Pulse Rate 47 L Respiratory Rate 18 Blood Pressure 121/79 O2 Sat by Pulse Oximetry 100 Orders Category Date Time Status Saline Loc DIRECTED Care 09/28/16 12:12 Active NPO Diet 09/28/16 12:12 Active KUB ABDOMEN [RAD] Stat Exams 09/28/16 12:12 Ordered AMYLASE [CHEM] Stat Lab 09/28/16 12:12 Uncollected CBC WITH ELECTRONIC DIFF [HEME] Stat Lab 09/28/16 12:12 Uncollected COMPREHENSIVE METABOLIC PANEL [CHEM] Stat Lab 09/28/16 12:12 Uncollected LIPASE [CHEM] Stat Lab 09/28/16 12:12 Uncollected URINALYSIS W/POSS RFLX CULT-1 [URINALYSIS] Stat Lab 09/28/16 12:12 Uncollected 0.9% Sodium Chloride Inj [Ns] 1,000 ml Med 09/28/16 12:12 Active IV 999 mls/hr Morphine Med 09/28/16 12:12 Discontinued 4 mg IV NOW ONE Ondansetron Odt [Zofran Odt] Med 09/28/16 12:12 Discontinued 4 mg PO NOW ONE Result Diagrams: 09/28/16 12:28 09/28/16 12:28 - CT/MRI 1 Impression: Abnormal (CT A+P - partial SBO) - CONSULTS/PCP/HOSPITALIST Notification Time Discussed: 15:16 Reason/Comments: Admit to Dr. Blandon Consult Disposition: Will see in ED, Admit Departure - Departure Time of Disposition Decision: 15:17 DIAGNOSIS: SBO (small bowel obstruction), Crohn's disease Disposition: ADMITTED INPATIENT 09 Certified Medical Emergency: Emergent Condition: Stable - Critical Care Note This patient required my direct & personal management of CC.: No
[2016-09-28 12:44] LABS: MANUAL DIFF NEEDED? NO
[2016-09-28 12:47] LABS: EOS# 0.93 X1000 (0.0-0.7); EOS% 12.6 % (0.0-10.0); HEMATOCRIT 44.9 % (42.0-52.0); HEMOGLOBIN 15.8 g/dL (14.0-18.0); IMM GRAN# 0.02 X1000 (0.0-0.04); IMM GRAN% 0.3 % (0.0-0.5); LYMPH# 2.23 X1000 (1.2-3.4); LYMPH% 30.3 % (20.5-51.1); MCH 33.8 PG (27-31); MCHC 35.2 g/dL (33-37); MCV 96.1 FL (81-99); MONO# 0.47 X1000 (0.11-0.59); MONO% 6.4 % (1.7-9.3); MPV 10.1 FL (7.4-10.4); NEUT% 49.4 % (42.2-75.2); PLT 212 X1000 (130-400); RBC 4.67 XMIL (4.7-6.1)
--- NOTE | 2016-09-28 12:55 | Diag Imaging Result Doc PS360 ---
EXAM: KUB ABDOMEN HISTORY: Abd pain TECHNIQUE: One view COMMENT: There are multiple distended gas-filled small bowel loops over the upper abdomen. There is a possibility of colonic gas. The stomach is not distended. There is no evidence organomegaly or mass. There are staple lines over the right lower quadrant. IMPRESSION: Postsurgical changes. The possibility of small bowel obstruction cannot be excluded. This was also present on 07/05/2016. Electronically signed by Michael Elizabeth 09/28/2016 12:53 PM
[2016-09-28] MEDS ORDERED: DILAUDID IV ONE ×2 (13:05→15:09)
[2016-09-28 13:13] LABS: AGAP 10; ALBUMIN 4.3 g/dL (3.5-5.0); ALKALINE PHOSPHATASE 70 U/L (32-122); AMYLASE 72 U/L (20-200); BUN 18 mg/dL (8-22); CALCIUM 9.2 mg/dL (8.8-10.2); CHLORIDE 102 mmol/L (98-107); COSMO 277; GOT 26 U/L (10-34); GPT 31 U/L (10-44); LIPASE 48 U/L (13-60); POTASSIUM 4.4 mmol/L (3.5-5.1); SODIUM 138 mmol/L (136-145); TCO2 26 mmol/L (25-35); TOTAL BILIRUBIN 0.51 mg/dL (0.20-1.00); TOTAL PROTEIN 7.7 g/dL (6.3-8.3)
[2016-09-28 13:43] LABS: URINE CULTURE NEEDED? NO; URINE MICRO REVIEW NEEDED? NO; URINE SOURCE CLEAN CATCH
[2016-09-28 13:52] LABS: BILIRUBIN URINE NEGATIVE (NEGATIVE); BLOOD URINE NEGATIVE (NEGATIVE); COLOR YELLOW; GLUCOSE URINE NEGATIVE (NEGATIVE); LEUKOCYTES URINE NEGATIVE (NEGATIVE); NITRITE URINE NEGATIVE (NEGATIVE); PH URINE 6.5; PROTEIN URINE TRACE mg/dL (NEGATIVE); SP GRAVITY URINE 1.022; TURBIDITY URINE CLEAR (CLEAR); UROBILINOGEN URINE NORMAL (NORMAL)
[2016-09-28 13:53] LABS: UR EPITHELIAL CELLS <10 /HPF (<10); URINE BACTERIA NEGATIVE /HPF; URINE RBC <10 /HPF (<10); URINE WBC <10 /HPF (<10)
--- NOTE | 2016-09-28 15:05 | Diag Imaging Result Doc PS360 ---
EXAM: ABDOMEN/PELVIS W/O CONTRAST HISTORY: Abd pain with Crohn's and h/o SBO TECHNIQUE: CT urogram without contrast COMMENT: The current study is compared with that of 07/05/2016. There is retained fluid contents in the stomach. There is been cholecystectomy. There is no evidence of nephrolithiasis. The proximal small bowel is not distended. There is dilatation of the mid small bowel with fecal lies contents. There appears to be a transitional point in the right lower quadrant around image 104. This is worse than on 07/05/2016. There has apparently been partial resection of the colon which was also the case previously with anastomosis of the small bowel with the distal colon. No evidence of free fluid or abscess is present. The regional skeleton is intact. IMPRESSION: Partial small bowel obstruction probably due to adhesions. No evidence of focal inflammation or abscess. No evidence of obstructive uropathy. Electronically signed by Michael Elizabeth 09/28/2016 3:03 PM
[2016-09-28] MEDS ORDERED: PROTONIX IV SCH (16:03)
[2016-09-28] MEDS ORDERED: PATIENT'S OWN MED SUBQ SCH (16:03)
[2016-09-28] MEDS ORDERED: MORPHINE IV PRN (16:03)
[2016-09-28] MEDS ORDERED: NS 1,000 ML IV SCH (16:03)
[2016-09-28] MEDS ORDERED: ZOFRAN IV PRN (16:03)
[2016-09-28] MEDS ORDERED: LOVENOX SUBQ SCH (16:03)
[2016-09-28] MEDS ORDERED: SODIUM CHLORIDE 0.9% INJ SCH (16:03)
--- NOTE | 2016-09-28 16:15 | HISTORY AND PHYSICAL ---
PRIMARY GI DOCTOR: Dr. Joseph. HISTORY OF PRESENT ILLNESS: This is a 45-year-old male with past medical history of Crohn's disease with total colectomy in 1990 and also he was recently admitted to the hospital, the last time here on July of this year for a small bowel obstruction. The patient reports that today in the morning he started noticing moderate to severe abdominal pain that was getting worse. He was supposed to see Dr. Joseph in the office because he had an appointment but because of this increasing worsening pain he decided to go to the ER and the CT of the abdomen confirmed small bowel obstruction. He denies any fever, chills. He denies any nausea or vomiting. He reports that he has not had any change in bowel movement but he usually has loose stools because of his colectomy. Patient is going to be admitted for further evaluation and treatment. PAST MEDICAL HISTORY: 1. Crohn's disease. 2. DVT in the lower extremity 5 years ago. 3. History of recurrent small bowel obstruction. PAST SURGICAL HISTORY: 1. Total colectomy in 1990. 2. Cholecystectomy. ALLERGIES: Patient is allergic to sulfa, iodine, penicillin, Ancef and IV contrast. SOCIAL HISTORY: Patient denies drinking alcohol, smoking tobacco, or using illicit drugs. Patient lives with . FAMILY HISTORY: Noncontributory. REVIEW OF SYSTEMS: Eleven systems were reviewed and all symptoms are related to H and P. PHYSICAL EXAMINATION: VITALS: Temperature 97.9 degrees, heart rate 47, respiratory rate 18, blood pressure 121/79, O2 saturation 100% on room air. GENERAL EXAMINATION: This is a 45-year-old male, lying in bed, in mild distress because of abdominal pain. HEENT: Head is normocephalic, atraumatic. Anicteric sclerae and pale conjunctivae. Mucous membranes moist. NECK: Supple. No JVD noted. No carotid bruits. No lymphadenopathy. No thyromegaly. CARDIOVASCULAR: S1, S2 heard. No murmurs, gallops, or rubs. Regular rate and rhythm. RESPIRATORY: Clear bilaterally to auscultation. No work of breathing or using accessory muscles. ABDOMEN: Not soft, a little bit distended and painful to palpation all over 4 quadrants. There are no signs of peritoneal irritation. EXTREMITIES: No clubbing, cyanosis, or edema. Peripheral pulses present in both legs. NEUROLOGICAL: Patient alert and oriented x3. Able to move 4 extremities. LABORATORY DATA: CBC and BMP are completely unremarkable as well as liver function tests and urine output. ASSESSMENT AND PLAN: 1. Recurrent small bowel obstruction. The patient is going to be placed on NG tube. His primary GI doctor, Dr. Joseph will be consulted as well as Surgery on board, Dr. Frye. He is going to get pain medications and normal saline. We will see what both the specialists have to say. 2. Crohn disease. We will continue with home medications. 3. Deep vein thrombosis prophylaxis with Lovenox, and GI prophylaxis with Protonix. cc: Guero Holden MD [facility]
[2016-09-28] MEDS ORDERED: OFIRMEV 1000 MG/ISOTONIC SOLN 1,000 MG/100 ML BOTTLE IV SCH (17:00)
--- NOTE | 2016-09-28 17:25 | CONSULTATION ---
DATE OF CONSULTATION: 09/28/2016 REQUESTING PHYSICIAN: Dr. Blanchard. REASON FOR CONSULT: Concerning small-bowel obstruction. HISTORY OF PRESENT ILLNESS: A 45-year-old male who I have seen before, who has a longstanding history of Crohn's, is status post total colectomy in 1990, presenting now with abdominal pain. He had a previous episode in July. He started noticing severe abdominal pain and is getting worse. This morning he was supposed to see Dr. Joseph in his office for a followup on a recent endoscopy. He was sent to the ER, found to have what appears to be potential for recurrent small-bowel obstruction. The hospitalist has admitted him. He is still reporting some abdominal pain. He reports that he had his most recent bowel movement this morning and has frequent stools. They attempted to place an NG tube in the ER and were unsuccessful. He is not significantly nauseated. I was asked to weigh an opinion. PAST MEDICAL HISTORY: 1. Crohn's. 2. History of DVT. 3. Recurrent small-bowel obstruction. PAST SURGICAL HISTORY: Includes cholecystectomy and total abdominal colectomy. ALLERGIES: Sulfa, iodine, penicillin, Ancef, and IV contrast. HOME MEDICATIONS: Currently not available. His MAR was reviewed. FAMILY HISTORY: Reviewed with patient and noncontributory. SOCIAL HISTORY: Denies alcohol, tobacco or illicit drugs. REVIEW OF SYSTEMS: A full 10 point review of systems obtained, negative as specified in HPI. PHYSICAL EXAMINATION: Vital Signs: Patient is currently afebrile. His vital signs are stable. General: No acute distress but appears uncomfortable. male, looks stated age. HEENT: Normocephalic, atraumatic. Pupils equal, round, reactive to light. Mucous membranes moist. Oropharynx benign. Neck: Supple. Trachea midline. Cardiovascular: Regular rate and rhythm. Lungs: Grossly clear. Abdomen: Soft, nondistended. Some tenderness to palpation mostly in the epigastric area, I would not give him peritoneal signs. Extremities: Moves all extremities well. Neurologic: Grossly intact. Skin: No signs of jaundice. Vascular: All extremities perfused. DIAGNOSTIC DATA: Laboratory reviewed: White blood cell count 7.3, hematocrit is 44, platelet count 212,000. Remainder of labs reviewed and grossly within normal limits. CT scan independently reviewed and radiology report reviewed. By report, there appears to be a partial small-bowel obstruction, does not appear to have any signs of inflammation or abscess. ASSESSMENT/PLAN: A 45-year-old, male with longstanding Crohn's, now presenting with abdominal pain and partial small-bowel obstruction. 1. Partial small-bowel obstruction. At this time, likely related to adhesions. Although he does have Crohn's and this may represent a Crohn's flare up. He does not have any signs of inflammation on the CT scan. At this time, Dr. Joseph has been consulted. He will likely need bowel rest, IV fluids, and potential for steroid for acute flare-up. 2. Multiple medical comorbidities currently being managed by the hospitalist service. I appreciate the consult. I will continue to follow with you. At this time, I have no plans for surgical intervention but will monitor him closely. cc: Donnie Frye MD
[2016-09-28 19:37] VITALS: BP 114/60
--- NOTE | 2016-09-29 13:04 | DISCHARGE SUMMARY ---
ADMISSION DATE: 09/28/2016 DISCHARGE DATE: 09/28/2016 CONSULTATIONS: 1. Dr. Donnie Frye. 2. Dr. Joseph with Gastroenterology. PERTINENT PROCEDURES: Abdomen and pelvis CT showed partial small bowel obstruction possibly due to adhesions. No evidence of focal inflammation or abscess. No evidence of obstructive uropathy. DISCHARGE DIAGNOSES: 1. Recurrent small-bowel obstruction. An NG tube was placed. The patient was seen by Dr. Joseph, as well as Dr. Frye. Dr. Joseph discharged the patient on 09/28/2016. 2. Crohn's disease. Continue with home medications. 3. Deep venous thrombosis history. HOSPITAL COURSE: Mr. Bella is a 45-year-old male with past medical history of Crohn's disease with total colectomy in 1990, and recently admitted to the hospital in July of this year for small-bowel obstruction. He reports on the day of his admission he started noticing moderate- to-severe abdominal pain that was getting worse. He was supposed to see Dr. Joseph in the office because he had an appointment, but because of the increased worsening pain he decided to go to the ED. A CT of the abdomen confirmed small bowel obstruction. No change in bowel movements reported. He usually has loose stools because of his colostomy. The patient was admitted for recurrent small bowel obstruction with an NG tube placed. Dr. Joseph was consulted as well as Dr. Frye who had no plans for surgery. Dr. Joseph did discharge the patient on the same day of his admission. He will continue his same home medications. VITAL SIGNS: On 09/28/2016 at 19:36 were temperature 98.6, heart rate 60, respirations 20, blood pressure is 114/60, O2 is 97% on room air. FOLLOWUP: The patient was discharged home by Dr. Joseph, and follow up with him in his office in 2 weeks. The patient can return to the ED for any worsening of symptoms. Dictated by SUNI Brasher for Guero Holden MD cc: Guero Holden MD
--- NOTE | 2016-09-30 14:00 | CONSULTATION ---
DATE OF CONSULTATION: 09/28/2016 CONSULTING PHYSICIAN: Dr. Blanchard. REASON FOR CONSULTATION: Abdominal pain and nausea. HISTORY: This is a 45-year-old gentleman patient known to me from my practice. He has a history of longstanding Crohn disease status post total colectomy and ileoanal anastomosis with a J pouch. He has been admitted to the hospital once a few months ago with similar complaints where he was found to have partial small bowel obstruction which resolved spontaneously and he was discharged. Since then, he did well until the day of admission in the morning when he felt the urge to have a bowel movement, and after he had a small bowel movement, he started having some abdominal pain. The abdominal pain was cramp-like, initially was mild but progressively it got worse in intensity and frequency of the cramps to the point it became unbearable. The pain was associated with severe nausea. He did not have any vomiting. He tells me that he has not eaten out or eaten anything unusual. He had his regular meal. His appetite prior to this episode was fine. He was eating well and he did not have any constipation. The bowel movement that he had was his usual, and we did not see any blood or mucus in his stool. He has been taking his medication and has been getting Humira as advised. His symptoms were not associated with any fever or chills. He did not have any headache or dizziness or double vision. He denies any earache, ear discharge, ringing in the ear, had not had any dysuria, polyuria, or hematuria. Nobody else in the family had similar symptoms. With these complaints, he came to the emergency room where he was observed and investigated. Imaging studies showed possible partial small bowel obstruction and he was admitted for further evaluation and treatment. While in the emergency room, they tried to place an NG tube, but he pulled it out, and since admission, his symptoms have spontaneously resolved. The pain has dissipated. His belly, which was slightly distended on arrival has become flat, and he has passed air as well as had a bowel movement. He is hungry now and wants to eat. PAST MEDICAL HISTORY: Significant for Crohn disease. He has a history of partial bowel obstruction earlier this year and he had a history of DVT. PAST SURGICAL HISTORY: The patient had a history of total colectomy with ileoanal anastomosis with a J pouch and history of cholecystectomy. MEDICATIONS: Prior to his hospitalization, he was on Humira, and he takes [place] p.r.n. ALLERGIES: He claims to be allergic to penicillin, sulfa medication, and iodine and NSAIDs. He does not take those. SOCIAL HISTORY: He is and he lives with his family. He does not smoke, does not drink, does not use illicit drugs. FAMILY HISTORY: No history of colon cancer, stomach cancer, pancreatic cancer, kidney disease, or colitis in the family. REVIEW OF SYSTEMS: As per HPI, as above. PHYSICAL EXAMINATION: General: The patient is sitting up in the bed, is conscious, alert, appeared to be in no distress now. Vital signs: Temperature was 98.6, pulse is 60 per minute, regular. Breathing at a rate of 20. Blood pressure was 114/60. He weighed 165 pounds. He is 5 feet 9 inches tall. Head is atraumatic, normocephalic. Eyes: Conjunctivae normal. Sclerae anicteric. Nares are patent, no discharge noted. Mouth: Buccal mucosa is moist, throat is normal. Neck: Supple. No lymphadenopathy or thyromegaly. Chest: Bilaterally symmetrical, is moving with respirations. Breath sounds audible bilaterally, no rhonchi or crepitations could be heard. Heart: S1 and S2 audible. No murmur could be appreciated. Abdomen: Has got surgical scar tam. Otherwise, abdomen is flat, soft. It is nontender. I could not appreciate any mass or visceromegaly. Bowel sounds are audible. No pedal edema, cyanosis, or clubbing was noted. REVERSER: Grossly intact. No sensory or motor deficit noted. Rectal: Exam was deferred at this time. LABS: Reviewed. WBC is 7.6, hemoglobin 15.8, hematocrit 44.9, MCV 96.1, platelets were 212. Sodium 138, potassium 4.4, chloride 102, bicarbonate 26, BUN is 18, creatinine 1.1. Transaminases and lipase were normal. Urinalysis was negative. IMAGING: KUB and CT scan of the abdomen reviewed which show evidence of partial small bowel obstruction. IMPRESSION: Partial small bowel obstruction which appears to have resolved. At this point, the patient is asymptomatic. His pain has resolved. He is no longer nauseated. He has passed flatus and had stool and is hungry now and wants to go home. Dr. Frye, surgeon, had already seen him, and he has discussed possible discharge and to continue Lora, to be followed up with me as an outpatient. I would recommend to discharge him after a trial of liquid diet, and if he tolerates well without any GI symptoms, he can be discharged. He will need further investigation of the area which appears to have been causing him his pain and nausea, and this was his second admission to the hospital. I would recommend a CT or MR enterogram to get a definitive idea as far as the pathology and may need exploratory laparotomy to identify any adhesions that could be causing his problem. His CT scan did not show any evidence of any localized inflammation of the small bowel, and I did not appear that his symptoms are because of thickening of the inflamed bowel. Once we identify a lesion or anatomical anomaly that is causing a problem, surgery may be anticipated. He has had his colectomy and ileoanal anastomosis in [place]. He was contemplating going back there. I have explained the findings and plan to the patient, his aunt and uncle present at the bedside. After discussion, he has opted to go home now, but again, he knows that he has to have a trial of liquid diet first. cc: Crow Joseph MD
== END 2016-09-28 21:15 | disposition home or self-care (01) ==
LOC: ED 11:53 → 4N 15:41
PROVIDERS: ATTEND Internal Medicine

== ENCOUNTER 2016-12-03 13:24 | Inpatient (IN) ==
[2016-12-03] MEDS ORDERED: NS 1,000 ML IV ONE ×2 (15:05→15:57)
[2016-12-03] MEDS ORDERED: DILAUDID IV ONE (15:05)
[2016-12-03] MEDS ORDERED: ZOFRAN IV ONE (15:05)
--- NOTE | 2016-12-03 15:26 | Diag Imaging Result Doc PS360 ---
EXAM: KUB ABDOMEN INDICATION: abd pain TECHNIQUE: One view COMPARISON: 09/28/2016 FINDINGS: There are multiple gas-distended loops of small bowel suggesting at least partial small bowel obstruction. This is similar but slightly worse than the distention on the previous study. There are metallic kevin in the right lower quadrant. There are cholecystectomy clips in the right upper quadrant. IMPRESSION: Distended loops of small bowel suggesting obstruction. Electronically signed by Kenroy Cee 12/03/2016 3:24 PM
[2016-12-03 15:29] LABS: MANUAL DIFF NEEDED? NO
[2016-12-03 15:32] LABS: BASO% 0.3 % (0.0-0.8); EOS% 8.6 % (0.0-10.0); HEMATOCRIT 42.3 % (42.0-52.0); HEMOGLOBIN 14.8 g/dL (14.0-18.0); IMM GRAN# 0.08 X1000 (0.0-0.04); IMM GRAN% 0.6 % (0.0-0.5); LYMPH# 1.94 X1000 (1.2-3.4); LYMPH% 15.2 % (20.5-51.1); MCH 33.7 PG (27-31); MCV 96.4 FL (81-99); MONO# 0.78 X1000 (0.11-0.59); MONO% 6.1 % (1.7-9.3); MPV 9.5 FL (7.4-10.4); NEUT% 69.2 % (42.2-75.2); PLT 252 X1000 (130-400); RBC 4.39 XMIL (4.7-6.1)
[2016-12-03 15:47] LABS: AGAP 9; CHLORIDE 99 mmol/L (98-107); POTASSIUM 3.7 mmol/L (3.5-5.1); SODIUM 135 mmol/L (136-145); TCO2 27 mmol/L (25-35)
[2016-12-03 15:48] LABS: ALBUMIN 3.9 g/dL (3.5-5.0); ALKALINE PHOSPHATASE 62 U/L (32-122); BUN 16 mg/dL (8-22); CALCIUM 8.9 mg/dL (8.8-10.2); COSMO 271; GOT 42 U/L (10-34); GPT 55 U/L (10-44); TOTAL PROTEIN 7.1 g/dL (6.3-8.3)
[2016-12-03] MEDS ORDERED: MORPHINE IV PRN (15:56)
--- NOTE | 2016-12-03 16:00 | PROVIDER DOCUMENTATION ---
HPI-General Adult - General Chief Complaint: Abdominal Pain Stated Complaint: "INTESTINAL BLOCKAGE" Time Seen by Provider: 12/03/16 14:59 Source: patient Allergies/Adverse Reactions: Patient Allergies Allergy/AdvReac Type Severity Reaction Status Date / Time iodine Allergy Severe trouble Verified 12/03/16 13:32 breathing NSAIDS (Non-Steroidal Allergy Unknown bleeding Verified 12/03/16 13:32 Anti-Inflamma Penicillins Allergy Unknown RASH Verified 12/03/16 13:32 Sulfa (Sulfonamide Allergy Unknown RASH Verified 12/03/16 13:32 Antibiotics) Home Medications: Home Medication List Medication Instructions Recorded Confirmed Last Taken Type Adalimumab [Humira] 20 mg SQ DIRECTED 07/05/16 09/28/16 09/28/16 History Dexlansoprazole [Dexilant] 1 tab PO DAILY 12/03/16 12/03/16 12/03/16 History - History of Present Illness -Gen Adult Nature of Presenting Problems: Pt. is 46 yom that presents with c/o abd pain that began this morning. Pt. reports he has had two previous obstructions this year and he thinks this is another one. Pt. denies any other symptoms other than pain. Pt. reports a previous colon removal due to Crohns. Location of Pain/Injury: reports: abdomen. denies: none, head, face, mouth, neck, chest, upper extremity, hand(s), back, pelvis, genitalia, lower extremity , feet, upper body, lower body, generalized, other Pain Radiation: reports: no radiation. denies: arm(s), back, buttocks, chest, epigastric, feet, groin, jaw, flank (L), legs (lower), LLQ, LUQ, neck, periumbilical, flank (R), RLQ, RUQ, shoulder(s), scapula, scrotal, sternal notch , suprapubic, legs (upper), urethral, vaginal, other Quality of Pain: reports: aching. denies: burning, cramping, dull, fullness, indigestion, pressure, sharp, stabbing, tearing, throbbing, tightness Severity: reports: moderate. denies: mild, severe Onset/Duration: reports: abrupt, this morning Timing: reports: still present. denies: improving, gone now, resolved prior to arrival, intermittent, constant, changing over time, getting worse Context/Activities at Onset: reports: none. denies: recent emotional stress, recent physical stress, recent trauma history, possible bad food, cold exposure , out of country travel Modifying Factors: improves with: nothing Associated Symptoms: reports: other (abd pain). denies: denies symptoms, anxiety, arm pain, back/neck pain, chest pain, constipation, cough, diaphoresis , diarrhea, dizziness, EENT symptoms, fatigue, fever/chills, genitourinary problems, headaches, heartburn, joint pain, loss of appetite, malaise, muscle aches, sinus congestion/drainage, nausea, rash, seizure, shortness of breath, sensory/motor loss, pain with inspiration, swelling/mass in abdomen, syncope, vomiting, weakness, trouble walking Similar Symptoms Previously?: Yes Recently seen or treated by another doctor?: Yes Review of Systems - Adult - REVIEW OF SYSTEMS - ADULT Constitutional: reports: see HPI. denies: chills, fever, fatique Eyes: reports: see HPI. denies: discharge, blurred vision, eye pain, redness Ears, Nose, Mouth & Throat: reports: see HPI. denies: ear pain, hearing loss, sinus problem, mouth/dental pain, throat swelling Cardiovascular: reports: see HPI. denies: chest pain, irregular heart rate, palpitations, syncope Respiratory: reports: see HPI. denies: cough, dyspnea on exertion, shortness of breath, wheezing Gastrointestinal: reports: see HPI, abdominal pain. denies: hematemesis, difficulty swallowing, nausea, vomiting Genitourinary: reports: see HPI. denies: dysuria, frequency, hematuria, hesitency, urgency Musculoskeletal: reports: see HPI. denies: bone pain, back pain, joint pain, muscle aches, neck pain Integumentary: reports: see HPI. denies: hives, itching, rash, skin thickening Neurological: reports: see HPI. denies: ataxia, dizziness/vertigo, numbness, seizure, tremors Psychiatric: reports: see HPI. denies: anxiety, depression, emotional problems , insomnia, panic attacks, suicidal thoughts Past History - Adult - PAST MEDICAL HISTORY-ADULT Review of Records: reports: Old Records Reviewed, Nursing Assessment Review, Medications Reviewed, Social history reviewed & non-contributory. Major Childhood Illnesses: reports: denies history Cardiovascular: reports: denies history Respiratory: reports: denies history Gastrointestinal: reports: Crohn's Obstetrical/Gynecological: reports: denies history Genitourinary: reports: denies history Musculoskeletal: reports: denies history Neurological: reports: denies history Endocrine/Immune: reports: denies history Other Conditions: reports: denies history - IMMUNIZATION STATUS Childhood Immunizations: See Nurse Assessment Flu Vaccine: See Nurse Assessment - FAMILY HISTORY Family History: reviewed, not pertinent - SOCIAL HISTORY Smoking: non-smoker Physical Exam-General - PHYSICAL EXAM-ADULT Initial Vital Signs Reviewed: Yes - CONSTITUTIONAL General Appearance: alert, moderate distress, thin. negative: obese, anxious, lethargic, slow to respond, obtunded, combative - EYES Eyes: PERRL/EOMI, pink conjunctivae. negative: conjuctival exudate, scleral icterus, subconjunctival hemorrhage - HEAD, EARS, NOSE, MOUTH & THROAT HENMT: normocephalic/atraumatic, moist mucous membranes. negative: angioedema, frontal tenderness, maxillary tenderness - NECK Neck: non-tender, full range of motion, supple, normal inspection. negative: lymphadenopathy, trachial deviation, thyromegaly - RESPIRATORY Respiratory: lungs clear, normal breath sounds. negative: crackles, rales, rhonchi, stridor, wheezing - CARDIOVASCULAR Cardiovascular: normal peripheral pulses, regular rate, rhythm, no edema, no JVD , no murmur. negative: extra beats, friction rub, irregularly irregular - GASTROINTESTINAL (ABDOMEN) Abdominal Exam: no organomegaly, abnormal bowel sounds (hypoactive), distended, rigid, tenderness. negative: soft, guarding, rebound, hernia, mass, obturator sign, psoas - LYMPHATIC Lymphatic: no adenopathy. negative: axilla node tender, cervical node tenderness - MUSCULOSKELETAL Back Exam: normal inspection, no CVA tenderness, no vertebral tenderness. negative: ecchymosis, swelling, vertebral tenderness Extremity: normal range of motion, non-tender, normal gait, normal inspection. negative: deformity, erythema, inflammation, swelling, tenderness Peripheral Pulses: radial (R): 2+, radial (L): 2+ - SKIN Integumentary: normal color, normal turgor, warm/dry. negative: cyanosis, diaphoresis, ecchymosis, erythema, jaundice, mottled, pallor, petechiae, purpura , rash, swelling, tenderness - NEUROLOGIC Neurologic: grossly normal, no motor/sensory deficits. negative: aphasia, facial droop, focal weakness, motor weakness, sensory deficit - PSYCHIATRIC Psych/Mental Status: normal mood/affect, normal thought content, normal thought process, oriented x 3. negative: anxious, paranoid, tearful Progress - PLAN OF CARE/RESULTS Progress/Plan/Lab Results: Vital Signs - 8 hr 12/03/16 13:33 12/03/16 15:25 Temperature 98.0 F Pulse Rate 84 66 Respiratory Rate 18 22 Blood Pressure 139/79 126/83 O2 Sat by Pulse Oximetry 98 97 Laboratory Results - last 24 hr 12/03/16 12/03/16 15:20 15:20 WBC 12.74 H RBC 4.39 L Hgb 14.8 Hct 42.3 MCV 96.4 MCH 33.7 H MCHC 35.0 RDW Std Deviation 13.3 Plt Count 252 MPV 9.5 Immature Gran % (Auto) 0.6 H Neut % (Auto) 69.2 Lymph % (Auto) 15.2 L [place] % (Auto) 6.1 Eos % (Auto) 8.6 Baso % (Auto) 0.3 Immature Gran # (Auto) 0.08 H Neut # (Auto) 8.80 H Lymph # (Auto) 1.94 [place] # (Auto) 0.78 H Eos # (Auto) 1.10 H Baso # (Auto) 0.04 Sodium 135 L Potassium 3.7 Chloride 99 Carbon Dioxide 27 Anion Gap 9 BUN 16 Creatinine 1.1 Estimated GFR/1.73 m2 > 60 BUN/Creatinine Ratio 15 Glucose 97 Calculated Osmolality 271 Calcium 8.9 Total Bilirubin 0.50 AST 42 H ALT 55 H Alkaline Phosphatase 62 Total Protein 7.1 Albumin 3.9 Globulin 3.0 Albumin/Globulin Ratio 1.0 Orders Category Date Time Status Saline Loc NOW Care 12/03/16 15:05 Active KUB ABDOMEN [RAD] Stat Exams 12/03/16 14:22 Completed CBC WITH ELECTRONIC DIFF [HEME] Stat Lab 12/03/16 15:20 Completed COMPREHENSIVE METABOLIC PANEL [CHEM] Stat Lab 12/03/16 15:[address] [URINALYSIS] Stat Lab 12/03/16 15:06 Ordered 0.9% Sodium Chloride Inj [Ns] 1,000 ml Med 12/03/16 15:05 Active IV 125 mls/hr Hydromorphone [Dilaudid] Med 12/03/16 15:05 Discontinued 1 mg IV NOW ONE Ondansetron [Zofran] Med 12/03/16 15:05 Discontinued 4 mg IV NOW ONE Discussed results and plan of care with patient. Patient agrees with plan and verbalizes understanding. Result Diagrams: 12/03/16 15:20 12/03/16 15:20 - XRAY 1 XRAY Study: Abdomen XRAY Interpretation: Dilated small bowel consistent with obstruction ([place]) - CONSULTS/PCP/HOSPITALIST Notification #1 *Consult/PCP/Hospitalist*: Dr. Byrnes Time Discussed: 15:35 Reason/Comments: Consultation Consult Disposition: Admit (Admit to Dr. Byrnes) Departure - Departure Date of Disposition Decision: 12/03/16 Time of Disposition Decision: 16:03 DIAGNOSIS: Small bowel obstruction Abdominal pain Qualifiers: Abdominal location: generalized Qualified Code(s): R10.84 - Generalized abdominal pain Disposition: ADMITTED INPATIENT 09 Certified Medical Emergency: Emergent Condition: Stable Referrals and Follow-Ups: Crow Joseph MD [Primary Care Provider] - - Critical Care Note This patient required my direct & personal management of CC.: No Attestation - Physician/ AMAIRANI Attestation Patient care was provided by Advanced Practice Provider:: Yes Advanced Practice Provider:: Ilda Franklin (The physician is on site and was consulted with but did not have face to face contact with the patient. ) Advanced Practice Provider documentation review:: The Mid-level provider documentation, treatment plan and medical decision making was reviewed by the physician who agrees with all treatment and medical decision making by the MLP.
[2016-12-03] MEDS ORDERED: NS 500 ML IV ONE (19:30)
[2016-12-03] MEDS ORDERED: SODIUM CHLORIDE 0.9% INJ SCH (19:45)
[2016-12-03] MEDS: DILAUDID IV PRN (20:24)
[2016-12-03] MEDS: ZOFRAN IV PRN (20:25)
[2016-12-03] MEDS: NEXIUM IV SCH (20:25)
[2016-12-03] MEDS: SODIUM CHLORIDE 0.9% INJ SCH (20:54)
--- NOTE | 2016-12-03 21:05 | HISTORY AND PHYSICAL ---
CHIEF COMPLAINT: Abdominal pain. HISTORY PRESENT ILLNESS: This is a 46-year-old male with a history of Crohn's disease status post total proctocolectomy with ileoanal J-pouch reconstruction in 1990. He had acute onset of severe epigastric pain this morning after he woke up. It is constant in duration today. It waxes and wanes in intensity and is described as spasms and cramps. There have been no exacerbating factors. There have been minimal relieving factors. Perhaps some relief with Dilaudid in the emergency room. He denies nausea, vomiting, fever, chills, or other systemic complaints. His last bowel movement was this morning around 2 a.m. He normally has a bowel movement every couple of hours and they are always liquid stools. He has had several episodes similar to this this year requiring admission. The other 2 episodes resolved spontaneously. He has underwent further workup previously including abdominal CT scan, magnetic resonance enterograph,y and upper and lower endoscopy this year. All have been unrevealing as to the nature of these episodes. He reportedly has had inflammatory markers such as sedimentation rate and C- reactive protein checked by his host/hostess head, , and these were both normal. PAST MEDICAL HISTORY: Crohn disease, gastritis. PAST SURGICAL HISTORY: 1. Total proctocolectomy with end ileostomy. 2. Reversal of ileostomy and creation of ileoanal J-pouch anastomosis. 3. Laparoscopic cholecystectomy. HOME MEDICATIONS: Dexilant, Humira, and [place]. ALLERGIES: Iodine, NSAIDs, penicillin, and sulfa. FAMILY HISTORY: Reviewed and noncontributory. There is no inflammatory bowel disease in the family. SOCIAL HISTORY: Negative for tobacco, alcohol, or illicit drugs. He is disabled and unable to work. He is and has a daughter with him today. REVIEW OF SYSTEMS: Ten systems reviewed and negative except as noted above. PHYSICAL EXAMINATION: VITAL SIGNS: He is afebrile. Vital signs are within normal limits. GENERAL: He is alert and oriented x4. No acute distress. HEENT: Normocephalic, atraumatic. Extraocular muscles intact. Pupils equal, round, reactive to light. Sclerae anicteric. Moist mucous membranes. NECK: Supple. No thyromegaly. CV: Regular rate and rhythm. RESPIRATORY: No work of breathing. He has bilateral breath sounds. GASTROINTESTINAL: Soft, nondistended. Decreased bowel sounds. He has mild diffuse tenderness to palpation. No rebound or guarding. No hernias. He has a well-healed midline incision as well as right lower quadrant stoma closure site. EXTREMITIES: No clubbing, cyanosis, or edema. SKIN: Warm and dry. No rash. MUSCULOSKELETAL: Moves all extremities equally and well. LABORATORY: His CBC showed a white blood cell count of 12,000. Otherwise it is unremarkable. His complete metabolic profile showed minimal elevation of AST and ALT and otherwise was unremarkable. IMAGING: An abdominal plain film shows multiple gas distended loops of small bowel consistent with a small-bowel obstruction. I reviewed his old CT scan from 2 months ago and it showed a similar picture with multiple loops of fluid-filled bowel consistent with bowel obstruction. There was no obvious inflammatory mass, abscess or neoplasm on that scan. ASSESSMENT AND PLAN: This is a 46-year-old male with recurrent small bowel obstruction and a history of Crohn's disease. His presentation is likely due to adhesions from prior surgery. I have recommended to him diagnostic laparoscopy and possible laparotomy with lysis of adhesions and a possible bowel resection if needed. We discussed the risks of bleeding, intra -abdominal or wound infection, injury to the intestines, incisional hernia, and other imponderables. He understands and agrees to proceed. I have also talked to his host/hostess head , Dr. Joseph, by phone today who was in agreement with this plan. cc: Reinier Byrnes MD [facility]
[2016-12-03 22:14] LABS: URINE CULTURE NEEDED? NO; URINE MICRO REVIEW NEEDED? NO; URINE SOURCE CLEAN CATCH
[2016-12-03 22:20] LABS: BILIRUBIN URINE NEGATIVE (NEGATIVE); BLOOD URINE NEGATIVE (NEGATIVE); COLOR YELLOW; GLUCOSE URINE NEGATIVE (NEGATIVE); LEUKOCYTES URINE NEGATIVE (NEGATIVE); NITRITE URINE NEGATIVE (NEGATIVE); PROTEIN URINE TRACE mg/dL (NEGATIVE); SP GRAVITY URINE 1.029; TURBIDITY URINE CLEAR (CLEAR); UR EPITHELIAL CELLS <10 /HPF (<10); URINE BACTERIA NEGATIVE /HPF; URINE RBC <10 /HPF (<10); URINE WBC <10 /HPF (<10); UROBILINOGEN URINE NORMAL (NORMAL)
[2016-12-04] MEDS: ZOFRAN IV PRN ×3 (00:01→18:34)
[2016-12-04] MEDS: DILAUDID IV PRN ×3 (03:10→21:49)
[2016-12-04] MEDS ORDERED: LEVAQUIN 500 MG/D5W 500 MG/100 ML IVPB ONE (10:45)
[2016-12-04 10:47] LABS: URINE CULTURE NEEDED? NO; URINE MICRO REVIEW NEEDED? NO; URINE SOURCE CATH
[2016-12-04 10:51] LABS: BILIRUBIN URINE NEGATIVE (NEGATIVE); BLOOD URINE NEGATIVE (NEGATIVE); COLOR YELLOW; GLUCOSE URINE NEGATIVE (NEGATIVE); LEUKOCYTES URINE NEGATIVE (NEGATIVE); NITRITE URINE NEGATIVE (NEGATIVE); PH URINE 5.5; PROTEIN URINE TRACE mg/dL (NEGATIVE); SP GRAVITY URINE 1.027; TURBIDITY URINE CLEAR (CLEAR); UR EPITHELIAL CELLS <10 /HPF (<10); URINE BACTERIA NEGATIVE /HPF; URINE RBC <10 /HPF (<10); URINE WBC <10 /HPF (<10); UROBILINOGEN URINE NORMAL (NORMAL)
[2016-12-04] MEDS ORDERED: LR 1,000 ML ONE (11:14)
[2016-12-04] MEDS ORDERED: DIPRIVAN 1% ONE (11:17)
[2016-12-04] MEDS ORDERED: FENTANYL ONE (11:18)
[2016-12-04] MEDS ORDERED: SENSORCAINE 0.25%/EPI 1:200,000 ONE (11:18)
[2016-12-04] MEDS ORDERED: QUELICIN (DOSE) ONE (11:18)
[2016-12-04] MEDS ORDERED: NEO-SYNEPHRINE ONE ×2 (12:13→12:14)
[2016-12-04] MEDS ORDERED: SODIUM CHLORIDE 0.9% 10 ML ONE (12:13)
[2016-12-04] MEDS ORDERED: DECADRON ONE (12:14)
[2016-12-04] MEDS ORDERED: ATROPINE ONE (12:14)
[2016-12-04] MEDS ORDERED: ZOFRAN ONE (12:14)
[2016-12-04] MEDS ORDERED: OFIRMEV 1000 MG/ISOTONIC SOLN 1,000 MG/100 ML BOTTLE ONE (12:50)
[2016-12-04] MEDS ORDERED: NEOSTIGMINE ONE (13:07)
[2016-12-04] MEDS ORDERED: ROBINUL ONE (13:07)
[2016-12-04] MEDS ORDERED: LR 500 ML ONE (13:42)
[2016-12-04] MEDS: MORPHINE ONE ×2 (13:45→19:04)
[2016-12-04] MEDS: DILAUDID ONE ×5 (13:51→19:05)
[2016-12-04] MEDS: PHENERGAN ONE ×2 (13:58→19:04)
--- NOTE | 2016-12-04 16:43 | OPERATIVE NOTE ---
PROCEDURE DATE: 12/04/2016 PREOPERATIVE DIAGNOSIS: Partial small bowel obstruction. POSTOPERATIVE DIAGNOSIS: Partial small bowel obstruction. PROCEDURE: Diagnostic laparoscopy with laparoscopic lysis of adhesions, greater than 1 hour. SURGEON: Reinier Byrnes MD ANESTHESIA: General. ESTIMATED BLOOD LOSS: 10 mL. COMPLICATIONS: None apparent. SPECIMENS: None. FINDINGS: There were multiple scattered adhesions of the small bowel to the omentum, retroperitoneum, and interloop adhesions. They appeared to be causing partial obstruction. The most notable one was in the right upper quadrant where the bowel will made 180 degree turn on itself and was adherent to its itself as well as to the retroperitoneum. TECHNIQUE: He was brought to the operating room and placed supine on the table. General anesthesia was induced. He was prepped and draped in sterile fashion, 0.25% Marcaine with epinephrine was used to anesthetize our incisions. A 5 mm incision was placed in the left upper quadrant. Entry into the peritoneal cavity was obtained under direct vision with the Optiview device. Pneumoperitoneum was established. The camera was inserted. There was no evidence of injury to underlying structures. Survey of the abdomen revealed some adhesions of a portion of the omentum in the left upper quadrant and the distal stomach was adherent to the anterior abdominal wall and the falciform ligament. I then proceeded to place several more ports, an 11 mm near the umbilicus and two 5 mm, 1 in the left lower quadrant and 1 in the right upper quadrant. Beginning in the right upper quadrant, I began taking down the adhesions that were described above. This bowel that was making a hairpin turn was able to be straightened out and unkinked after carefully lysing the adhesions with scissors. I continued to follow the bowel along its course and counting several more adhesions as described above. These were taken down carefully with scissors and using the LigaSure device. I encountered an anastomosis near the pelvic brim of small bowel to small bowel. It did not appear to be obstructing. We followed this all the way down into the pelvis. I could find no other obstructing lesions. There were no masses or evidence of active Crohn disease. I felt like this was done safely without any enterotomies and the bowel was sufficiently straightened out now. We then desufflated the abdomen and removed our ports. The umbilical fascia was closed with a [id number] Vicryl. The skin was closed with running 4-0 subcuticular Monocryl and Steri-Strips. There were no apparent complications. He was awakened in stable condition and transferred to the recovery room. cc: Reinier Byrnes MD
[2016-12-04] MEDS: SODIUM CHLORIDE 0.9% INJ SCH (20:37)
[2016-12-04] MEDS: NEXIUM IV SCH (20:38)
[2016-12-04] MEDS: PERIDEX MT SCH (20:42)
[2016-12-04] MEDS ORDERED: MYLICON PO PRN ×2 (20:56→21:03)
[2016-12-05] MEDS: DILAUDID IV PRN (00:54)
[2016-12-05] MEDS: ZOFRAN IV PRN (00:55)
[2016-12-05] MEDS: NORCO-10 PO PRN ×3 (04:41→13:20)
[2016-12-05] MEDS: PERIDEX MT SCH (09:03)
[2016-12-05 13:15] VITALS: BP 110/60
--- NOTE | 2016-12-05 13:40 | PROGRESS NOTE ---
DATE: 12/05/2016 SUBJECTIVE: The patient is doing well. He has some soreness but no severe pain. No nausea or vomiting. He feels a little bloated. He has passed gas and had a bowel movement and is tolerating his diet. OBJECTIVE: Vital signs: He is afebrile. Vital signs are stable. Urine output is adequate. He has voided multiple times. General: He is alert and oriented x4. No acute distress. CV: Regular rate and rhythm. Respiratory: Bilateral equal breath sounds. No work of breathing. Gastrointestinal: Soft, nondistended. Appropriately tender. Incisions are clean, dry, and intact. He does have good bowel sounds. ASSESSMENT AND PLAN: This is a 46-year-old male postoperative day 1 laparoscopic lysis of adhesions for partial small bowel obstruction. He appears to be improved. We are going to discharge him home today. He will eat as tolerated and follow up with me in 2 weeks. cc: Reinier Byrnes MD
--- NOTE | 2016-12-05 15:40 | DISCHARGE SUMMARY ---
ADMISSION DATE: 12/03/2016 DISCHARGE DATE: 12/05/2016 ADMITTING PHYSICIAN: Reinier Byrnes MD. ADMITTING DIAGNOSES: 1. Small bowel obstruction. 2. History of Crohn's disease. DISCHARGE DIAGNOSES: 1. Small bowel obstruction. 2. History of Crohn's disease. PROCEDURE: Diagnostic laparoscopy with lysis of adhesions. BRIEF HISTORY: This is a 46-year-old male with Crohn's disease who is status post total proctocolectomy with ileoanal J-pouch anastomosis in 1990. He was done rather well over the last 26 years. However, this year he has had several episodes of bowel obstructions. This is his third episode requiring admission this year. He was admitted for observation and possible exploration if he did not improve. Indeed he did not show much improvement over the first 24 hours and we elected to go ahead and explore. He was admitted for operative intervention. HOSPITAL COURSE: The day after admission he underwent diagnostic laparoscopy and was found to have multiple adhesive bands causing partial obstruction of the small bowel. These were lysed. For full details of operation, see the dictated operative report. The day after surgery he was doing well, tolerating a liquid and soft diet. He was passing gas and having bowel movements. He was discharged home. DISCHARGE INSTRUCTIONS: 1. No lifting over 15 pounds for 1 month 2. He may shower. 3. He should advance his diet to regular as tolerated. FOLLOWUP: Follow up with Dr. Byrnes in [address] Byrnes's office as needed for severe pain, vomiting, fever or other concerns discharge. DISCHARGE MEDICATIONS: 1. He will continue his home Humira and Dexilant. 2. A new prescription for [place] 5 mg 1 every 4 hours as needed for pain was given to him. cc: MD Crow Xie MD
== END 2016-12-05 14:21 | disposition home or self-care (01) ==
LOC: P.ED 13:24 → 4N 16:21
PROVIDERS: ADMIT Surgery; ATTEND Surgery

== ENCOUNTER 2016-12-16 09:12 | Observation (INO) ==
[2016-12-16 09:45] LABS: URINE CULTURE NEEDED? NO; URINE MICRO REVIEW NEEDED? NO; URINE SOURCE CLEAN CATCH
[2016-12-16] MEDS ORDERED: NS 1,000 ML IV ONE ×2 (09:51→10:09)
[2016-12-16 09:52] LABS: BILIRUBIN URINE NEGATIVE (NEGATIVE); BLOOD URINE NEGATIVE (NEGATIVE); COLOR YELLOW; GLUCOSE URINE NEGATIVE (NEGATIVE); LEUKOCYTES URINE NEGATIVE (NEGATIVE); NITRITE URINE NEGATIVE (NEGATIVE); PROTEIN URINE TRACE mg/dL (NEGATIVE); SP GRAVITY URINE 1.027; TURBIDITY URINE CLEAR (CLEAR); UR EPITHELIAL CELLS <10 /HPF (<10); URINE BACTERIA NEGATIVE /HPF; URINE RBC <10 /HPF (<10); URINE WBC <10 /HPF (<10); UROBILINOGEN URINE NORMAL (NORMAL)
[2016-12-16 10:05] LABS: UR AMPHETAMINES QUAL NONE DETECTED (NONE DETECT); UR BARBITUATES QUAL NONE DETECTED (NONE DETECT); UR BENZODIAZEPIN QUAL NONE DETECTED (NONE DETECT); UR CANNABINOIDS QUAL NONE DETECTED (NONE DETECT); UR COCAINE QUAL NONE DETECTED (NONE DETECT); UR METHADONE QUAL NONE DETECTED (NONE DETECT); UR OPIATES QUAL NONE DETECTED (NONE DETECT); UR OXYCODONE QUAL NONE DETECTED (NONE DETECT); UR PCP QUAL NONE DETECTED (NONE DETECT)
[2016-12-16] MEDS ORDERED: ZOFRAN IV ONE (10:09)
[2016-12-16 10:10] LABS: MANUAL DIFF NEEDED? NO
--- NOTE | 2016-12-16 10:10 | PROVIDER DOCUMENTATION ---
This chart was entered by Jeimy Kumar Scribe, acting as scribe for Aamir Nava MD. HPI-Abdominal Pain/GI Problem - General Chief Complaint: Abdominal Pain Stated Complaint: POST OP COMPLAINT Time Seen by Provider: 12/16/16 09:46 Source: patient Allergies/Adverse Reactions: Patient Allergies Allergy/AdvReac Type Severity Reaction Status Date / Time iodine Allergy Severe trouble Verified 12/03/16 13:32 breathing NSAIDS (Non-Steroidal Allergy Unknown bleeding Verified 12/03/16 13:32 Anti-Inflamma Penicillins Allergy Unknown RASH Verified 12/03/16 13:32 Sulfa (Sulfonamide Allergy Unknown RASH Verified 12/03/16 13:32 Antibiotics) Home Medications: Home Medication List Medication Instructions Recorded Confirmed Last Taken Type Adalimumab [Humira] 20 mg SQ DIRECTED 07/05/16 12/03/16 11/29/16 09:00 History Dexlansoprazole [Dexilant] 1 tab PO DAILY 12/03/16 12/03/16 12/03/16 History Hydrocodone/APAP 5 mg/325 mg 1 - 2 each PO Q4H PRN #30 tablet 12/05/16 Unknown Rx [[place]-5] - History of Present Illness-ABD Nature of Presenting Problems: Pt is a 46 year old male who came to the ED with a cc of abdominal pain starting at 9:00 last night. Pt had surgery on his intestines two weeks ago. Pt has a hx of crohns. Denies N/V. Pt has a hx of adhesions on his intestines. Abdominal Pain Onset Location: reports: generalized abdomen Pain Radiation: reports: no radiation Quality of Pain: reports: sharp Onset/Duration: reports: last night Timing: reports: still present Activities at Onset: reports: none Associated Symptoms: denies: nausea, vomiting Last BM: unsure Dark Stools Present?: reports: none noticed Rectal Bleeding: reports: none Rectal Pain: reports: none Bruising or Bleeding Gums?: No Similar Symptoms Previously?: Yes Recently seen or treated by another doctor?: No Review of Systems - Adult - REVIEW OF SYSTEMS - ADULT Constitutional: denies: chills, fever Eyes: reports: no symptoms reported Ears, Nose, Mouth & Throat: reports: no symptoms reported Cardiovascular: denies: chest pain, irregular heart rate Respiratory: reports: no symptoms reported Gastrointestinal: reports: abdominal pain. denies: diarrhea, nausea, vomiting Genitourinary: reports: no symptoms reported Musculoskeletal: denies: joint pain, neck pain Integumentary: reports: no symptoms reported Neurological: reports: no symptoms reported Psychiatric: reports: no symptoms reported Endocrine: reports: no symptoms reported Hematologic/Lymphatic: reports: no symptoms reported Allergic/Immunologic: reports: no symptoms reported All Other Systems: Reviewed and Negative Past History - Adult - PAST MEDICAL HISTORY-ADULT Review of Records: reports: Old Records Reviewed, Nursing Assessment Review Major Childhood Illnesses: reports: denies history Cardiovascular: reports: denies history Respiratory: reports: denies history Gastrointestinal: reports: Crohn's Obstetrical/Gynecological: reports: denies history Genitourinary: reports: denies history Musculoskeletal: reports: denies history Neurological: reports: denies history Endocrine/Immune: reports: denies history Other Conditions: reports: denies history - IMMUNIZATION STATUS Childhood Immunizations: See Nurse Assessment Flu Vaccine: See Nurse Assessment - FAMILY HISTORY Family History: reviewed, not pertinent Physical Exam-General - PHYSICAL EXAM-ADULT Initial Vital Signs Reviewed: Yes - CONSTITUTIONAL General Appearance: alert, mild distress - EYES Eyes: PERRL/EOMI, pink conjunctivae - HEAD, EARS, NOSE, MOUTH & THROAT HENMT: normocephalic/atraumatic, moist mucous membranes - NECK Neck: non-tender, full range of motion - RESPIRATORY Respiratory: chest non-tender, lungs clear - CARDIOVASCULAR Cardiovascular: normal peripheral pulses, regular rate, rhythm - GASTROINTESTINAL (ABDOMEN) Abdominal Exam: tenderness - MUSCULOSKELETAL Back Exam: normal inspection, no CVA tenderness Extremity: normal range of motion, non-tender - SKIN Integumentary: normal color, normal turgor - NEUROLOGIC Neurologic: grossly normal - PSYCHIATRIC Psych/Mental Status: normal mood/affect, normal thought content, normal thought process, oriented x 3 Progress - PLAN OF CARE/RESULTS Progress/Plan/Lab Results: Vital Signs - 8 hr 12/16/16 09:23 Temperature 97.9 F Pulse Rate 79 Respiratory Rate 20 Blood Pressure 120/84 O2 Sat by Pulse Oximetry 100 Laboratory Results - last 24 hr 12/16/16 09:36 Urine Source CLEAN CATCH Orders Category Date Time Status UA NIMS W/REFLEX CULT [URINALYSIS] Stat Lab 12/16/16 09:36 Results UDS [URINE DRUG SCREEN] Stat Lab 12/16/16 09:36 Received Result Diagrams: 12/16/16 09:59 12/16/16 09:59 - CONSULTS/PCP/HOSPITALIST Notification #1 *Consult/PCP/Hospitalist*: Dr Byrnes Time Discussed: 10:59 Consult Disposition: Admit Departure - Departure Date of Disposition Decision: 12/16/16 Time of Disposition Decision: 11:00 DIAGNOSIS: Abdominal adhesions Disposition: ADMITTED INPATIENT 09 Certified Medical Emergency: Emergent Condition: Stable - Critical Care Note This patient required my direct & personal management of CC.: No Attestation - Physician/ AMAIRANI Attestation The physician spent face to face time with patient:: Yes Advanced Practice Provider documentation review:: Supervising physician onsite and consulted in the evaluation and care of this patient. The physician did have a face to face encounter with the patient. This chart was documented by the indicated scribe, (Jeimy Kumar Scribe) and accurately reflects the services I performed and decisions made by me, Aamir Nava MD, as attested by the provider's signature.
[2016-12-16 10:13] LABS: BASO% 0.9 % (0.0-0.8); EOS# 1.15 X1000 (0.0-0.7); EOS% 12.6 % (0.0-10.0); HEMATOCRIT 44.5 % (42.0-52.0); HEMOGLOBIN 15.5 g/dL (14.0-18.0); IMM GRAN# 0.02 X1000 (0.0-0.04); IMM GRAN% 0.2 % (0.0-0.5); LYMPH# 2.06 X1000 (1.2-3.4); LYMPH% 22.5 % (20.5-51.1); MCH 33.3 PG (27-31); MCHC 34.8 g/dL (33-37); MCV 95.5 FL (81-99); MONO# 0.65 X1000 (0.11-0.59); MONO% 7.1 % (1.7-9.3); MPV 9.7 FL (7.4-10.4); NEUT% 56.7 % (42.2-75.2); PLT 297 X1000 (130-400); RBC 4.66 XMIL (4.7-6.1)
--- NOTE | 2016-12-16 10:18 | Diag Imaging Result Doc PS360 ---
EXAM: FLAT/UPRIGHT ABD/1 VIEW CHEST HISTORY: ABDOMINAL PAIN TECHNIQUE: Flat and upright abdomen with AP chest, portable at 1005 COMMENT: The current study is compared without of 12/03/2016. There is slightly less gaseous dilatation of small bowel loops in the upper abdomen is seen on the previous study. The stomach is not distended. There is no appreciable colonic gas, although there was none seen previously. There is clearly been some anastomosis in the right lower quadrant and possibly also in the rectum. Correlation with the patient's surgical history is recommended. There is no evidence of organomegaly or mass. There is been cholecystectomy. CHEST: The inspiration is somewhat suboptimal. Compared to the previous study of 07/05/2016 there is been no significant change. IMPRESSION: Essentially stable chest and abdomen. Possibility of ileus or partial obstruction cannot be excluded. Electronically signed by Michael Elizabeth 12/16/2016 10:16 AM
[2016-12-16 10:45] LABS: AGAP 13; ALBUMIN 4.3 g/dL (3.5-5.0); ALKALINE PHOSPHATASE 69 U/L (32-122); AMYLASE 67 U/L (20-200); BUN 20 mg/dL (8-22); CALCIUM 9.2 mg/dL (8.8-10.2); CHLORIDE 101 mmol/L (98-107); COSMO 276; GOT 21 U/L (10-34); GPT 21 U/L (10-44); LIPASE 41 U/L (13-60); POTASSIUM 3.9 mmol/L (3.5-5.1); SODIUM 137 mmol/L (136-145); TCO2 23 mmol/L (25-35); TOTAL BILIRUBIN 0.59 mg/dL (0.20-1.00); TOTAL PROTEIN 7.4 g/dL (6.3-8.3)
[2016-12-16] MEDS ORDERED: DILAUDID ONE (10:55)
[2016-12-16] MEDS ORDERED: DILAUDID IV ONE (10:59)
[2016-12-16] MEDS ORDERED: TORADOL IV ONE (11:13)
[2016-12-16] MEDS ORDERED: TORADOL IV PRN (11:13)
[2016-12-16] MEDS ORDERED: TORADOL ONE (11:15)
--- NOTE | 2016-12-16 12:45 | HISTORY AND PHYSICAL ---
CHIEF COMPLAINT: Abdominal pain. HISTORY OF PRESENT ILLNESS: This is a 46-year-old male well known to tx status post diagnostic laparoscopy with lysis of adhesions on 12/04/2016. He was discharged on 12/05/2016 and, up until last night, he said, he had been doing reasonably well with mild intermittent crampy pain that was better than before surgery. He has had no nausea or vomiting. He has had no trouble with regular bowel movements. In fact, he goes frequently throughout the day because he has had a total proctocolectomy for Crohn disease years ago. Last night around 9 o'clock, he began having severe crampy upper abdominal pain that waxes and wanes in intensity, similar to what he had before his operation. He has had a little nausea, but no vomiting, no fever or chills. PAST MEDICAL HISTORY: Crohn disease, gastritis. PAST SURGICAL HISTORY: 1. Laparoscopic lysis of adhesions on 12/04/2016. 2. Total proctocolectomy with end ileostomy. 3. Reversal of ileostomy and creation of ileoanal J-pouch anastomosis. 4. Laparoscopic cholecystectomy. HOME MEDICATIONS: 1. Dexilant. 2. Humira. 3. [place]. ALLERGIES: Iodine, NSAIDs, penicillin, sulfa. FAMILY HISTORY: Reviewed and noncontributory. SOCIAL HISTORY: Negative for tobacco, alcohol, or illicit drug use. He is and is disabled. REVIEW OF SYSTEMS: Ten systems reviewed and negative except as noted above. PHYSICAL EXAMINATION: VITAL SIGNS: Temperature 97.9, pulse 79, respirations 20, blood pressure 120/84; O2 saturation 100%. GENERAL: A well-developed male who is nontoxic appearing, but appears to be somewhat uncomfortable. HEENT: Normocephalic and atraumatic. Extraocular muscles intact. Pupils equal, round, and reactive to light. Sclerae anicteric . Moist mucous membranes. Hearing grossly normal. NECK: Supple. No thyromegaly. CARDIOVASCULAR: Regular rate and rhythm. RESPIRATORY: Clear. Bilateral breath sounds. No work of breathing. GASTROINTESTINAL: Soft, nondistended. He does have bowel sounds. He is tender in the upper abdomen. No rebound or guarding. No mass appreciated. His incisions are healing well. No drainage or infection. EXTREMITIES: No clubbing, cyanosis, or edema. MUSCULOSKELETAL: Moves all extremities equally and well. LABORATORY: White blood cell count 9, hemoglobin 15, platelet count 297,000. Complete metabolic profile with amylase and lipase was reviewed and all are within normal limits. Urinalysis is negative. Urine drug screen is negative. IMAGING: An abdominal x-ray today shows less gaseous dilation of the small bowel loops in the upper abdomen which was seen on his previous study. The stomach is not distended. There does not appear to be any gas in his distal small bowel in the pelvis. ASSESSMENT AND PLAN: A 46-year-old male with recurrent abdominal pain status post recent laparoscopy and lysis of adhesions. At this point, we will admit him for observation with repeat abdominal exam, small bowel follow-through, and pain control. Hopefully, this will resolve without further exploration. cc: Reinier Byrnes MD
[2016-12-16] MEDS: NS 1,000 ML IV ONE ×2 (14:23→14:35)
[2016-12-16] MEDS: ZOFRAN IV PRN ×2 (14:23→21:13)
[2016-12-16] MEDS: DILAUDID IV PRN ×3 (14:23→21:14)
[2016-12-16] MEDS: TORADOL IV PRN ×2 (14:33→21:22)
--- NOTE | 2016-12-16 15:13 | Diag Imaging Result Doc PS360 ---
EXAM: SMALL BOWEL SERIES ONLY HISTORY: sbo TECHNIQUE: Small bowel follow-through COMMENT: There has been previous total colectomy. There is no evidence of mucosal fold thickening in the small bowel. Between the 90 minute image and the 150 minute image barium reached the rectum. There is no apparent obstruction. IMPRESSION: No evidence of obstruction. Total transit time less than 150 minutes. Electronically signed by Michael Elizabeth 12/16/2016 3:11 PM
[2016-12-17] MEDS: DILAUDID IV PRN ×3 (00:36→09:11)
[2016-12-17] MEDS: ZOFRAN IV PRN ×2 (04:37→09:12)
[2016-12-17] MEDS: TORADOL IV PRN (04:41)
--- NOTE | 2016-12-17 07:49 | Diag Imaging Result Doc PS360 ---
EXAM: ABDOMEN FLAT/UPRIGHT HISTORY: sbo TECHNIQUE: Flat and upright abdomen COMMENT: There is only a small amount of residual barium within the small bowel. There continues to be some dilatation of the distal small bowel. Presumably, this is chronic. IMPRESSION: No evidence of obstruction. Electronically signed by Michael Elizabeth 12/17/2016 7:47 AM
[2016-12-17 08:23] VITALS: BP 104/57
[2016-12-17] MEDS ORDERED: DEXILANT PO SCH (09:00)
--- NOTE | 2016-12-17 12:05 | PROGRESS NOTE ---
DATE: 12/17/2016 SUBJECTIVE: The patient is not having any more abdominal pain. No nausea or vomiting. He has had several bowel movements. He is passing gas. He is hungry. OBJECTIVE: Vital Signs: He is afebrile. Vital signs are stable. General: He is alert and oriented x4. No acute distress. GI: Soft, nontender, nondistended. He has good bowel sounds. Imaging: The small-bowel follow through and x-ray today showed no evidence of small-bowel obstruction. There is a normal transit time from the stomach to the anus of the contrast. ASSESSMENT/PLAN: A 46-year-old male with recurrent crampy abdominal pain without evidence of obstruction. He is improved. We are going to discharge him home today. I will also give him a prescription for hyoscyamine for symptomatic crampy abdominal pain. He will follow up with Dr. Joseph and he knows to follow up with me or to return to the emergency room for any severe obstructive type symptoms which we have gone over in detail. cc: Reinier Byrnes MD
== END 2016-12-17 11:47 | disposition home or self-care (01) ==
LOC: ED 09:12 → INTOOBSV 13:41 → 4N 13:41
PROVIDERS: ADMIT Surgery; ATTEND Surgery